=== PATIENT | male | born 1955 | race Caucasian/White ===

== ENCOUNTER 2018-04-15 16:04 | Emergency (ER) | payer MEDICARE, MEDICAID, SELFPAY ==
[2018-04-15 16:12] VITALS: BP 148/77; PULSE 68; RESP 18; TEMP 36.7; O2SAT 95
--- NOTE | 2018-04-15 16:17 | W.ED.GENAD ---
Discharge Plan Disposition Patient Disposition: HOME Condition: Fair Discharge Details Chief Complaint: Orthopedic Clinical Impression: Contusion of knee, left Primary Care Provider: Andrey Wheeler ED Provider: Sophia Valencia Home Meds and New Rx's Prescriptions: Continued acetaminophen 500 MG tablet 500 - 1,000 mg PO Q6H PRNRF: 0 diphenhydramine HCl [Benadryl] 25 MG capsule 25 - 50 mg PO Q6H PRNRF: 0 citalopram 10 MG tablet 10 mg PO HS RF: 0 fluocinonide 60 ML solution 1 applic Topical BID PRNRF: 0 loperamide 2 MG capsule 2 - 4 mg PO DIRECTED PRNRF: 0 metoprolol tartrate 25 MG tablet 25 mg PO BID RF: 0 magnesium hydroxide [Milk of Magnesia] 30 ML suspension 5 - 15 ml PO QID PRNRF: 0 multivitamin 1 EACH capsule 1 tab PO DAILY RF: 0 esomeprazole magnesium [Nexium] 40 MG capsule,delayed release(DR/EC) 40 mg PO HS RF: 0 risperidone 3 MG tablet 3 mg PO BID RF: 0 simethicone 125 MG capsule 125 mg PO HS PRNRF: 0 simvastatin 40 MG tablet 40 mg PO HS RF: 0 trazodone 100 MG tablet 100 mg PO HS RF: 0 triamcinolone acetonide 15 GM cream 1 applic Topical BID PRNRF: 0 cane 1 EACH device 1 ea Miscellaneous DIRECTED Qty: 1 RF: 0 Discharge Instructions Instructions: Contusion in Adults (ED) Additional Instructions: Encourage rest, ice, elevation. Tylenol as needed for discomfort. You may take 1000 mg of Tylenol every 8 hours as needed for discomfort. King wrap is needed to help with discomfort and support the knee. You may continue with cane if this helps with discomfort with walking. If you develop increased pain or other new/worsening symptoms please seek care urgently once again. Otherwise, please follow-up with primary care in the next 1-2 weeks pain persists Referrals: Andrey Wheeler [Primary Care Provider] - Medical Decision Making Patient is a 62 year old male, accompanied by human services case manager, with c/c of left knee pain. 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 Was here previously for injry to the right knee. Reports that 3 hours prior to arrival, he slipped on the ice and fell landing on the left knee. Denies other injury at the time of the incident. Denies striking his head, no LOC. Denies pain elsewhere. histology manager reports that patient has been ambulating with antalgic gait. has been using cane to help with ambulation, this was prescribed for him in May. when he was seen here previously for right knee injury. On exam, patient has minimal discomfort with palpation over the medial joint line. No disocmfort or laxity with varus or valgus stress testing, no abnormality with anterior/posterior drawer testing. No effusion. No ecchymosis or soft tissue sweling. He reports that he was having discomfort to the medial and lateral joint. Unclear as to how he fell, he reports that he struck both sides of his knee. Full ROM. Will augment his Tylenol with Ibuprofen. will obtain XR to evaluate for any bony abnormality. X-ray reviewed by radiologist. They note no evidence of an acute fracture or malalignment or dislocation. They do note a mild suprapatellar joint effusion Discussed these findings with the patient and his human services case manager. I encouraged rest, ice, elevation. May continue with Tylenol as needed for discomfort. Will have nursing staff placed King wrap over the knee to help with discomfort and help with swelling. We discussed new/worsening symptoms when to seek care urgently once again. Advise follow-up with primary care in the next 1-2 weeks if pain persists. All the questions and concerns were addressed in agreement this plan. HPI General Mode of arrival: ambulatory (with cane). Date/Time Provider Initiated Documentation: 04/15/18 16:16. Limitations to Documentation: no limitations. Information obtained by: patient and family (accompanied by human services case manager). History of Present Illness 62 year old M presents to the emergency department with the chief complaint of left knee pain, described as moderate, with intensity rated at 8. Quality is described as aching, and is localized to the left and lower extremity. Patient reports no radiation. Patient started experiencing this hour(s) (3) and it has been constant. Immobilization improves symptom(s), Movement worsens symptoms . Patient notes no other symptoms.. Patient did receive the following treatments prior to arrival, other (Tylenol) Related Data Home Medications Medication Instructions Recorded Confirmed acetaminophen 500 - 1,000 mg PO Q6H PRN 06/25/17 06/25/17 cane #1 ea 06/25/17 citalopram 10 mg PO HS 06/25/17 06/25/17 diphenhydramine HCl [Benadryl] 25 - 50 mg PO Q6H PRN 06/25/17 06/25/17 esomeprazole magnesium [Nexium] 40 mg PO HS 06/25/17 06/25/17 fluocinonide 1 applic TOPICAL BID PRN 06/25/17 06/25/17 loperamide 2 - 4 mg PO DIRECTED PRN 06/25/17 06/25/17 magnesium hydroxide [Milk of 5 - 15 ml PO QID PRN 06/25/17 06/25/17 Magnesia] metoprolol tartrate 25 mg PO BID 06/25/17 06/25/17 multivitamin 1 tab PO DAILY 06/25/17 06/25/17 risperidone 3 mg PO BID 06/25/17 06/25/17 simethicone 125 mg PO HS PRN 06/25/17 06/25/17 simvastatin 40 mg PO HS 06/25/17 06/25/17 trazodone 100 mg PO HS 06/25/17 06/25/17 triamcinolone acetonide 1 applic TOPICAL BID PRN 06/25/17 06/25/17 Previous Rx's Medication Instructions Recorded cane #1 ea 06/25/17 Allergies Allergy/AdvReac Type Severity Reaction Status Date / Time naproxen AdvReac Mild GI bleed Unverified 04/15/18 16:16 General Stated Complaint: Orthopedic MARIA L: 4 Review of Systems Constitutional Reports as per HPI, Denies chills, Denies fever(s), Denies headache(s) and Denies weakness ENT Denies headache(s) Cardiovascular Reports as per HPI Respiratory Reports as per HPI and Denies cough Musculoskeletal Reports as per HPI, Reports abnormal gait (using cane to help with gait), Denies deformity, Denies joint swelling, Denies limited range of motion and Denies tingling Integumentary/Breasts Reports as per HPI, Denies rash and Denies wounds Neurologic Reports abnormal gait (using cane to help with gait), Denies headache(s), Denies tingling and Denies weakness [facility] Social History Smoking/Tobacco Use Status: Never Exam Const General: cooperative, healthy appearing, comfortable, no acute distress, well developed and well groomed Nutritional Appearance: well nourished and overweight Orientation: alert and awake Resp Effort & Inspection: normal respiratory effort, able to speak in complete sentences and no respiratory distress Cardio Rate: regular rate Rhythm: regular rhythm Skin General skin exam: no rashes or lesions noted Lesions: no lesions Rashes: no rashes Trauma: no lacerations or abrasions Neuro General: alert and awake Cognition: normal cognition Speech: speech normal Gait: normal gait Motor: muscle tone normal throughout Sensory Exam: no sensory deficits noted Extrem General: no joint enlargement, no clubbing, cyanosis or edema, no pedal edema, no calf tenderness and abnormal gait (ambulating with antalgic gait, using cane) Left lower extremity: full ROM, normal capillary refill, no joint enlargement and knee Details: tenderness (minimal discomfort over medial joint line) Location: of the medial joint line; not of the patella, not of the tibial tuberosity, not of the lateral joint line, not of the proximal fibula, not of the pre-patellar area, not of the distal upper leg and not of the proximal tibia, knee ligament exam normal Details: anterior drawer test normal, posterior drawer test normal, valgus stress test normal and varus stress test normal and Shmuel's Test Details: negative medially and laterally; no ecchymosis, no deformity and no unusual warmth; no edema Psych Appearance: grossly normal and well kempt Mental Status: mental status grossly normal Speech and Movement: speech and movement normal Course Vital Signs Temperature 36.7 C 04/15/18 16:12 Pulse 68 04/15/18 16:12 Respiratory Rate 18 04/15/18 16:12 Blood Pressure 148/77 H 04/15/18 16:12 Pulse Oximetry 95 04/15/18 16:12 Temperature 36.7 C 04/15/18 16:12 Temperature Source Skin 04/15/18 16:12 Pulse 68 04/15/18 16:12 Respiratory Rate 18 04/15/18 16:12 Blood Pressure 148/77 H 04/15/18 16:12 Blood Pressure Position Sitting 04/15/18 16:12 Pulse Oximetry 95 04/15/18 16:12 Oxygen Delivery Method Room Air 04/15/18 16:12 Oxygen Flow Rate 0 12/17/18 16:12 Pain Level 8 04/15/18 16:12 Comment 04/15/18 16:12
--- NOTE | 2018-04-15 16:26 | DI.RAD_ITS ---
SYMPTOM/DIAGNOSIS: FALL, MEDIAL PAIN LEFT KNEE: There is no evidence of an acute fracture or dislocation. There is mild tri-compartmental joint space narrowing and minimal periarticular hypertrophic spurring is demonstrated involving the patella. There may be a small suprapatellar joint effusion. The soft tissues are unremarkable. SUMMARY: No acute abnormality is demonstrated. There are degenerative changes as noted above with note made of possible joint effusion.
--- NOTE | 2018-04-15 16:32 | ED.GENADUL_ITS ---
Discharge Plan Disposition Patient Disposition: HOME Condition: Fair Discharge Details Chief Complaint: Orthopedic Clinical Impression: Contusion of knee, left Primary Care Provider: Andrey Wheeler ED Provider: Sophia Valencia Home Meds and New Rx's Prescriptions: Continued acetaminophen 500 MG tablet 500 - 1,000 mg PO Q6H PRNRF: 0 diphenhydramine HCl [Benadryl] 25 MG capsule 25 - 50 mg PO Q6H PRNRF: 0 citalopram 10 MG tablet 10 mg PO HS RF: 0 fluocinonide 60 ML solution 1 applic Topical BID PRNRF: 0 loperamide 2 MG capsule 2 - 4 mg PO DIRECTED PRNRF: 0 metoprolol tartrate 25 MG tablet 25 mg PO BID RF: 0 magnesium hydroxide [Milk of Magnesia] 30 ML suspension 5 - 15 ml PO QID PRNRF: 0 multivitamin 1 EACH capsule 1 tab PO DAILY RF: 0 esomeprazole magnesium [Nexium] 40 MG capsule,delayed release(DR/EC) 40 mg PO HS RF: 0 risperidone 3 MG tablet 3 mg PO BID RF: 0 simethicone 125 MG capsule 125 mg PO HS PRNRF: 0 simvastatin 40 MG tablet 40 mg PO HS RF: 0 trazodone 100 MG tablet 100 mg PO HS RF: 0 triamcinolone acetonide 15 GM cream 1 applic Topical BID PRNRF: 0 cane 1 EACH device 1 ea Miscellaneous DIRECTED Qty: 1 RF: 0 Discharge Instructions Instructions: Contusion in Adults (ED) Additional Instructions: Encourage rest, ice, elevation. Tylenol as needed for discomfort. You may take 1000 mg of Tylenol every 8 hours as needed for discomfort. King wrap is needed to help with discomfort and support the knee. You may continue with cane if this helps with discomfort with walking. If you develop increased pain or other new/worsening symptoms please seek care urgently once again. Otherwise, please follow-up with primary care in the next 1-2 weeks pain persists Referrals: Andrey Wheeler [Primary Care Provider] - Medical Decision Making Patient is a 62 year old male, accompanied by caser up, with c/c of left knee pain. 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 Was here previously for injry to the right knee. Reports that 3 hours prior to arrival, he slipped on the ice and fell landing on the left knee. Denies other injury at the time of the incident. Denies striking his head, no LOC. Denies pain elsewhere. patient accounts manager reports that patient has been ambulating with antalgic gait. has been using cane to help with ambulation, this was prescribed for him in May. when he was seen here previously for right knee injury. On exam, patient has minimal discomfort with palpation over the medial joint line. No disocmfort or laxity with varus or valgus stress testing, no abnormality with anterior/posterior drawer testing. No effusion. No ecchymosis or soft tissue sweling. He reports that he was having discomfort to the medial and lateral joint. Unclear as to how he fell, he reports that he struck both sides of his knee. Full ROM. Will augment his Tylenol with Ibuprofen. will obtain XR to evaluate for any bony abnormality. X-ray reviewed by radiologist. They note no evidence of an acute fracture or malalignment or dislocation. They do note a mild suprapatellar joint effusion Discussed these findings with the patient and his caser up. I encouraged rest, ice, elevation. May continue with Tylenol as needed for discomfort. Will have nursing staff placed King wrap over the knee to help with discomfort and help with swelling. We discussed new/worsening symptoms when to seek care urgently once again. Advise follow-up with primary care in the next 1-2 weeks if pain persists. All the questions and concerns were addressed in agreement this plan. HPI General Mode of arrival: ambulatory (with cane) . Date/Time Provider Initiated Documentation: 04/15/18 16:16 . Limitations to Documentation: no limitations . Information obtained by: patient and family (accompanied by caser up) . History of Present Illness 62 year old M presents to the emergency department with the chief complaint of left knee pain, described as moderate, with intensity rated at 8. Quality is described as aching, and is localized to the left and lower extremity. Patient reports no radiation. Patient started experiencing this hour(s) (3) and it has been constant. Immobilization improves symptom(s), Movement worsens symptoms . Patient notes no other symptoms.. Patient did receive the following treatments prior to arrival, other (Tylenol) Related Data Home Medications Medication Instructions Recorded Confirmed acetaminophen 500 - 1,000 mg PO Q6H PRN 06/25/17 06/25/17 cane #1 ea 06/25/17 citalopram 10 mg PO HS 06/25/17 06/25/17 diphenhydramine HCl [Benadryl] 25 - 50 mg PO Q6H PRN 06/25/17 06/25/17 esomeprazole magnesium [Nexium] 40 mg PO HS 06/25/17 06/25/17 fluocinonide 1 applic TOPICAL BID PRN 06/25/17 06/25/17 loperamide 2 - 4 mg PO DIRECTED PRN 06/25/17 06/25/17 magnesium hydroxide [Milk of 5 - 15 ml PO QID PRN 06/25/17 06/25/17 Magnesia] metoprolol tartrate 25 mg PO BID 06/25/17 06/25/17 multivitamin 1 tab PO DAILY 06/25/17 06/25/17 risperidone 3 mg PO BID 06/25/17 06/25/17 simethicone 125 mg PO HS PRN 06/25/17 06/25/17 simvastatin 40 mg PO HS 06/25/17 06/25/17 trazodone 100 mg PO HS 06/25/17 06/25/17 triamcinolone acetonide 1 applic TOPICAL BID PRN 06/25/17 06/25/17 Previous Rx's Medication Instructions Recorded cane #1 ea 06/25/17 Allergies Allergy/AdvReac Type Severity Reaction Status Date / Time naproxen AdvReac Mild GI bleed Unverified 04/15/18 16:16 General Stated Complaint: Orthopedic MARIA L: 4 Review of Systems Constitutional Reports as per HPI, Denies chills, Denies fever(s), Denies headache(s) and Denies weakness ENT Denies headache(s) Cardiovascular Reports as per HPI Respiratory Reports as per HPI and Denies cough Musculoskeletal Reports as per HPI, Reports abnormal gait (using cane to help with gait), Denies deformity, Denies joint swelling, Denies limited range of motion and Denies tingling Integumentary/Breasts Reports as per HPI, Denies rash and Denies wounds Neurologic Reports abnormal gait (using cane to help with gait), Denies headache(s), Denies tingling and Denies weakness [facility] Social History Smoking/Tobacco Use Status: Never Exam Const General: cooperative, healthy appearing, comfortable, no acute distress, well developed and well groomed Nutritional Appearance: well nourished and overweight Orientation: alert and awake Resp Effort & Inspection: normal respiratory effort, able to speak in complete sentences and no respiratory distress Cardio Rate: regular rate Rhythm: regular rhythm Skin General skin exam: no rashes or lesions noted Lesions: no lesions Rashes: no rashes Trauma: no lacerations or abrasions Neuro General: alert and awake Cognition: normal cognition Speech: speech normal Gait: normal gait Motor: muscle tone normal throughout Sensory Exam: no sensory deficits noted Extrem General: no joint enlargement, no clubbing, cyanosis or edema, no pedal edema, no calf tenderness and abnormal gait (ambulating with antalgic gait, using cane) Left lower extremity: full ROM, normal capillary refill, no joint enlargement and knee Details: tenderness (minimal discomfort over medial joint line) Location: of the medial joint line; not of the patella, not of the tibial tuberosity, not of the lateral joint line, not of the proximal fibula, not of the pre-patellar area, not of the distal upper leg and not of the proximal tibia, knee ligament exam normal Details: anterior drawer test normal, posterior drawer test normal, valgus stress test normal and varus stress test normal and Shmuel's Test Details: negative medially and laterally; no ecchymosis, no deformity and no unusual warmth; no edema Psych Appearance: grossly normal and well kempt Mental Status: mental status grossly normal Speech and Movement: speech and movement normal Course Vital Signs Temperature 36.7 C 04/15/18 16:12 Pulse 68 04/15/18 16:12 Respiratory Rate 18 04/15/18 16:12 Blood Pressure 148/77 H 04/15/18 16:12 Pulse Oximetry 95 04/15/18 16:12 Temperature 36.7 C 04/15/18 16:12 Temperature Source Skin 04/15/18 16:12 Pulse 68 04/15/18 16:12 Respiratory Rate 18 04/15/18 16:12 Blood Pressure 148/77 H 04/15/18 16:12 Blood Pressure Position Sitting 04/15/18 16:12 Pulse Oximetry 95 04/15/18 16:12 Oxygen Delivery Method Room Air 04/15/18 16:12 Oxygen Flow Rate 0 12/17/18 16:12 Pain Level 8 04/15/18 16:12 Comment 04/15/18 16:12
[2018-04-15] MEDS: Ibuprofen 600 MG TAB PO (16:35)
--- NOTE | 2018-04-15 18:08 | DI.VRAD_ITS ---
EXAM: XR Left Knee, 4 or more Views EXAM DATE/TIME: 04/15/2018 4:27 PM CLINICAL HISTORY: 62 years old, male; Injury or trauma; Fall; Initial encounter; Swelling (edema); Knee; Left TECHNIQUE: XR Left knee 4 or more views. COMPARISON: No relevant prior studies available. FINDINGS: Bones/joints: There is no evidence of acute fracture.. There is no evidence of malalignment or dislocation. Tricompartmental joint space narrowing consistent with degenerative changes. Minimal osteophyte formation in the superior pole of patella. Mild suprapatellar joint effusion. Soft tissues: Normal. IMPRESSION: 1. There is no evidence of acute fracture.. 2. There is no evidence of malalignment or dislocation. 3. Mild suprapatellar joint effusion. Dictated and Authenticated by: Michelle Sykes MD. Ordering:JULITO Cortes MD
[2018-04-15 18:40] VITALS: BP 160/85; PULSE 68; RESP 18; TEMP 36.7; O2SAT 95
== END 2018-04-15 18:51 | disposition home or self-care (01) ==
PROVIDERS: Emergency Provider Physician Assistant; PCP Internal Medicine
DX: S80.02XA Contusion of left knee, initial encounter (principal); W00.0XXA Fall on same level due to ice and snow, initial encounter
CPT/HCPCS: 99282; 99283; 73564

== ENCOUNTER 2018-08-14 13:44 | Outpatient (REF) | payer MEDICARE, MEDICAID, SELFPAY ==
[2018-08-14 19:52] LABS: Abs Immature Grans 0.01 k/cumm (0.0-0.09); Absolute Basophil Count 0.02 k/cumm (0.0-0.2); Absolute Lymphocyte Count 2.84 k/cumm (1.2-3.4); Absolute Monocyte Count 0.64 k/cumm (0.11-0.7); Absolute Neutrophil Count 4.25 k/cumm (1.2-6.7); Basophils % 0.3; Eosinophils % 1.3; HCT 38.4 % (40.0-50.0); Immature Grans % 0.1; Lymphocytes % 36.1; Mean Corp. HGB Concentration 33.9 g/dL (32.0-36.0); Mean Corpuscular Hemoglobin 30.7 pg (27.0-33.0); Mean Corpuscular Volume 90.8 fL (80-95); Mean Platelet Volume 9.8 fL (8.0-11.0); Monocytes % 8.1; Neutrophils % 54.1; Platelet Count 297 x1000/uL (130-400); RBC 4.23 m/cumm (4.50-6.00); RBC Distribution Width 13.6 % (11.8-14.1); White Blood Cell Count 7.86 k/cumm (4.4-10.8)
[2018-08-14 20:03] LABS: ALT 25 U/L (12-78); AST 15 U/L (15-37); Albumin 3.7 g/dL (3.4-5.0); Alkaline Phosphatase 65 U/L (46-116); Anion Gap 10.5 mmol/L (3-11); BUN 13 mg/dL (7-18); Bilirubin, Total 0.3 mg/dL (0.2-1.0); CO2 26.5 mmol/L (21.0-32.0); CREATININE 0.82 mg/dL (0.70-1.30); Calcium 8.7 mg/dL (8.5-10.1); Chloride 103 mmol/L (98-107); Glucose 104 mg/dL (70-100); LDL CHOLESTEROL 102 mg/dL (<100); Sodium 140 mmol/L (136-145); Total Protein 7.3 g/dL (6.4-8.2)
== END 2018-08-14 14:04 ==
LOC: NCHCN 13:44
PROVIDERS: PCP Internal Medicine; Visit Provider Internal Medicine
DX: E78.5 Hyperlipidemia, unspecified (principal); D64.9 Anemia, unspecified
CPT/HCPCS: 80053; 83721; 85025

== ENCOUNTER 2018-10-28 12:10 | Emergency (ER) | payer MEDICARE, MEDICAID, SELFPAY ==
[2018-10-28 12:15] VITALS: BP 114/70; PULSE 70; RESP 18; TEMP 36.6; O2SAT 94
--- NOTE | 2018-10-28 12:58 | DI.RAD_ITS ---
SYMPTOMS/DIAGNOSIS: LEG PAIN, HIP PAIN PELVIS AND LEFT HIP: No fracture or dislocation is seen. The hip joint spaces are well maintained. The SI joints and pubic symphysis are not widened. IMPRESSION: Negative pelvis and left hip. LEFT FEMUR: No fracture is identified. The hip and knee are unremarkable as visualized. IMPRESSION: Negative left femur.
[2018-10-28] MEDS: Acetaminophen 325 MG TAB 650 MG PO (13:00)
--- NOTE | 2018-10-28 14:29 | ED.GENADUL_ITS ---
Discharge Plan Disposition Patient Disposition: HOME Discharge Details Chief Complaint: Orthopedic Primary Care Provider: Andrey Wheeler ED Provider: Kvng Herbert Home Meds and New Rx's Prescriptions: Continued diphenhydramine HCl [Benadryl] 25 MG capsule 25 - 50 mg PO Q6H PRNRF: 0 citalopram 10 MG tablet 10 mg PO HS RF: 0 fluocinonide 60 ML solution 1 applic Topical BID PRNRF: 0 loperamide 2 MG capsule 2 - 4 mg PO DIRECTED PRNRF: 0 metoprolol tartrate 25 MG tablet 25 mg PO BID RF: 0 magnesium hydroxide [Milk of Magnesia] 30 ML suspension 5 - 15 ml PO QID PRNRF: 0 multivitamin 1 EACH capsule 1 tab PO DAILY RF: 0 esomeprazole magnesium [Nexium] 40 MG capsule,delayed release(DR/EC) 40 mg PO HS RF: 0 risperidone 3 MG tablet 3 mg PO BID RF: 0 simethicone 125 MG capsule 125 mg PO HS PRNRF: 0 simvastatin 40 MG tablet 40 mg PO HS RF: 0 trazodone 100 MG tablet 100 mg PO HS RF: 0 triamcinolone acetonide 15 GM cream 1 applic Topical BID PRNRF: 0 cane 1 EACH device 1 ea Miscellaneous DIRECTED Qty: 1 RF: 0 acetaminophen 500 MG tablet 500 - 1,000 mg PO Q6H PRNQty: 20 RF: 0 Discharge Data Discharge Date/Time-TO BE ENTERED AT DEPARTURE: 10/28/18 14:45 Medical Decision Making Patient presenting to the emergency department for chief complaint of left hip and groin pain. Patient states that over the past couple days he has been going up and down stairs a lot and carrying boxes and heavy items. Patient states that he woke up this morning with this pain and discomfort. He has had this 2 other times in the past which was attributed to old age and/or arthritis. Patie nt denies any fever chills, blunt trauma, any abdominal pain. Physical exam shows tenderness to the proximal upper femur, to the hip, pain with both internal and external rotation of the hip, and some mid thigh discomfort. Otherwise abdominal exam is unremarkable, patient has no signs of hernia or testicular pain discomfort or abnormality. Plan to do radiological imaging of the hip and femur. Pending results patient given acetaminophen After review of radiological imaging and radiologist dictation that shows no acute findings patient was reassessed. Patient states significant improvement in discomfort. Patient was encouraged to continue to use acetaminophen as needed for discomfort and follow-up with his primary care provider for reassessment. Patient was informed he should rest the extremity over the next couple days and slowly advance activity as tolerated. HPI General Mode of arrival: ambulatory . Date/Time Provider Initiated Documentation: 10/28/18 12:20 . Limitations to Documentation: no limitations . Information obtained by: patient and RN notes reviewed . History of Present Illness 63 year old M presents to the emergency department with the chief complaint of left hip and groin pain, described as moderate, with intensity rated at 7. Quality is described as aching and sharp, and is localized to the left and lower extremity. Patient distal. Patient started experiencing this day(s) (1) and it has been constant. Rest improves symptom(s), Movement worsens symptoms . Patient notes no other symptoms.. Patient did receive the following treatments prior to arrival, none Related Data Home Medications Medication Instructions Recorded Confirmed cane #1 ea 06/25/17 citalopram 10 mg PO HS 06/25/17 06/25/17 diphenhydramine HCl [Benadryl] 25 - 50 mg PO Q6H PRN 06/25/17 06/25/17 esomeprazole magnesium [Nexium] 40 mg PO HS 06/25/17 06/25/17 fluocinonide 1 applic TOPICAL BID PRN 06/25/17 06/25/17 loperamide 2 - 4 mg PO DIRECTED PRN 06/25/17 06/25/17 magnesium hydroxide [Milk of 5 - 15 ml PO QID PRN 06/25/17 06/25/17 Magnesia] metoprolol tartrate 25 mg PO BID 06/25/17 06/25/17 multivitamin 1 tab PO DAILY 06/25/17 06/25/17 risperidone 3 mg PO BID 06/25/17 06/25/17 simethicone 125 mg PO HS PRN 06/25/17 06/25/17 simvastatin 40 mg PO HS 06/25/17 06/25/17 trazodone 100 mg PO HS 06/25/17 06/25/17 triamcinolone acetonide 1 applic TOPICAL BID PRN 06/25/17 06/25/17 acetaminophen 500 - 1,000 mg PO Q6H PRN #20 tab 10/28/18 Previous Rx's Medication Instructions Recorded cane #1 ea 06/25/17 acetaminophen 500 - 1,000 mg PO Q6H PRN #20 tab 10/28/18 Allergies Allergy/AdvReac Type Severity Reaction Status Date / Time naproxen AdvReac Mild GI bleed Unverified 10/28/18 12:18 General Stated Complaint: Orthopedic MARIA L: 3 Review of Systems Constitutional Denies chills and Denies fever(s) Gastrointestinal Denies abdominal pain and Denies nausea Genitourinary Denies genital pain and Denies testicular pain Musculoskeletal Reports as per HPI, Reports myalgias, Denies deformity, Reports arthralgias, Denies joint swelling and Denies limited range of motion PFSH Social History Smoking/Tobacco Use Status: Never Alcohol Intake: never Drug use: Never Substance use type: does not use Do you feel safe at home: Yes Do you feel safe in your relationship?: Yes Exam Const General: cooperative and no acute distress Orientation: alert, awake and oriented x3 Resp Effort & Inspection: normal respiratory effort and able to speak in complete sentences Cardio Rate: regular rate Rhythm: regular rhythm Extrem Left lower extremity: hip/thigh Details: tenderness Location: of the hip Location: laterally and of the proximal upper leg Location: anteriorly and anterolaterally and abnormal ROM Details: pain with resistance Details: to internal rotation and to external rotation; no swelling, no ecchymosis and no crepitus and knee Details: normal to inspection and normal ROM; no tenderness and no swelling Course Vital Signs Temperature 36.6 C 10/28/18 12:15 Pulse 70 10/28/18 12:15 Respiratory Rate 18 10/28/18 12:15 Blood Pressure 114/70 10/28/18 12:15 Pulse Oximetry 94 L 10/28/18 12:15 Temperature 36.6 C 10/28/18 12:15 Temperature Source Temporal Artery Scan 10/28/18 12:15 Pulse 70 10/28/18 12:15 Respiratory Rate 18 10/28/18 12:15 Respiratory Effort Non-Labored 10/28/18 12:17 Blood Pressure 114/70 10/28/18 12:15 Blood Pressure Position Sitting 10/28/18 12:15 Pulse Oximetry 94 L 10/28/18 12:15 Pain Level 8 10/28/18 13:00
[2018-10-28 14:43] VITALS: BP 155/73; PULSE 72; RESP 15; TEMP 36.5; O2SAT 95
== END 2018-10-28 14:45 | disposition home or self-care (01) ==
PROVIDERS: Emergency Provider Nurse Practitioner Family; PCP Internal Medicine
DX: M25.552 Pain in left hip (principal); X50.0XXA Overexertion from strenuous movement or load, initial encounter
CPT/HCPCS: 73552; 99284; 73502

== ENCOUNTER 2019-02-02 16:19 | Emergency (ER) | payer MEDICARE, MEDICAID, SELFPAY ==
[2019-02-02 16:24] VITALS: BP 172/72; PULSE 76; RESP 16; TEMP 36.5; O2SAT 96
--- NOTE | 2019-02-02 16:37 | W.ED.GENAD ---
Discharge Plan Disposition Patient Disposition: HOME Condition: Stable Discharge Details Chief Complaint: RashLesion Clinical Impression: Tick bite Primary Care Provider: Andrey Wheeler ED Provider: Kvng Herbert Home Meds and New Rx's Prescriptions: New doxycycline hyclate 100 mg capsule 100 mg PO BID 14 Days Qty: 28 RF: 0 Continued diphenhydramine HCl [Benadryl] 25 MG capsule 25 - 50 mg PO Q6H PRNRF: 0 citalopram 10 MG tablet 10 mg PO HS RF: 0 fluocinonide 60 ML solution 1 applic Topical BID PRNRF: 0 loperamide 2 MG capsule 2 - 4 mg PO DIRECTED PRNRF: 0 metoprolol tartrate 25 MG tablet 25 mg PO BID RF: 0 multivitamin 1 EACH capsule 1 tab PO DAILY RF: 0 esomeprazole magnesium [Nexium] 40 MG capsule,delayed release(DR/EC) 40 mg PO HS RF: 0 risperidone 3 MG tablet 3 mg PO BID RF: 0 simethicone 125 MG capsule 125 mg PO HS PRNRF: 0 simvastatin 40 MG tablet 40 mg PO HS RF: 0 trazodone 100 MG tablet 100 mg PO HS RF: 0 triamcinolone acetonide 15 GM cream 1 applic Topical BID PRNRF: 0 (DME) cane 1 EACH device 1 ea Miscellaneous DIRECTED Qty: 1 RF: 0 acetaminophen 500 MG tablet 500 - 1,000 mg PO Q6H PRNQty: 20 RF: 0 ropinirole 1 mg Tablet 1 mg PO .QHS RF: 0 terbinafine HCl 250 mg Tablet 250 mg PO DAILY RF: 0 magnesium hydroxide [Milk of Magnesia] 30 ML suspension 5 - 15 ml PO QID PRN (Reason: stomach upset) Qty: 0 RF: 0 Discharge Instructions Instructions: Tick Bite (ED) Additional Instructions: Please take medication as prescribed and for the full 2 weeks. Please do not take your Maalox/milk of magnesium with the doxycycline as this will diminish its effectiveness. If not improving over the next week please follow-up with your primary care provider for reassessment and feel free to return to the emergency department for any new or significant worsening of symptoms. You may take acetaminophen as needed for pain and discomfort, just take as directed on [id number] packaging. Referrals: Andrey Wheeler [Primary Care Provider] - Discharge Data Discharge Date/Time-TO BE ENTERED AT DEPARTURE: 02/02/19 16:50 Medical Decision Making Patient presenting to the emergency department chief complaint of tick bite. Patient states that this occurred 2 weeks ago. Patient reports today he started having some arthralgia. He does state that the initial tick bite has not seemed healed and is continued with redness. Patient denies any other symptoms including fever or chills. Physical exam is unremarkable except for erythema to right antecubital space. Localized area of redness is not consistent with erythema migrans or definitive tickborne illness type rash. No tick is present at this time and patient has full range of motion of the right upper extremity with no other abnormalities noted. Given patient's associated tick bite and now developing localized arthralgia in the same area which the embedded tick was removed and that it is been 2 weeks I do feel it is prudent for treatment of tickborne illness. Patient placed on doxycycline. Return precautions were discussed along with follow-up with primary care provider. After discussion of diagnosis and plan of care patient has no further needs, questions, or concerns and states clear understanding to return to the emergency department for any worsening symptoms. HPI General Mode of arrival: ambulatory. Date/Time Provider Initiated Documentation: 02/02/19 16:20. Limitations to Documentation: no limitations. Information obtained by: patient and RN notes reviewed. History of Present Illness 63 year old M presents to the emergency department with the chief complaint of Tick bite-right elbow pain, described as mild, with intensity rated at 4. Quality is described as aching, and is localized to the right and upper extremity. Patient started experiencing this week(s) (2) and it has been constant. No relieving factors improve symptom(s), Patient notes no other symptoms.. Patient did receive the following treatments prior to arrival, none Related Data Home Medications Medication Instructions Recorded Confirmed cane #1 ea 06/25/17 citalopram 10 mg PO HS 06/25/17 02/02/19 diphenhydramine HCl [Benadryl] 25 - 50 mg PO Q6H PRN 06/25/17 02/02/19 esomeprazole magnesium [Nexium] 40 mg PO HS 06/25/17 06/25/17 fluocinonide 1 applic TOPICAL BID PRN 06/25/17 02/02/19 loperamide 2 - 4 mg PO DIRECTED PRN 06/25/17 02/02/19 metoprolol tartrate 25 mg PO BID 06/25/17 02/02/19 multivitamin 1 tab PO DAILY 06/25/17 02/02/19 risperidone 3 mg PO BID 06/25/17 02/02/19 simethicone 125 mg PO HS PRN 06/25/17 02/02/19 simvastatin 40 mg PO HS 06/25/17 02/02/19 trazodone 100 mg PO HS 06/25/17 02/02/19 triamcinolone acetonide 1 applic TOPICAL BID PRN 06/25/17 02/02/19 acetaminophen 500 - 1,000 mg PO Q6H PRN #20 tab 10/28/18 02/02/19 doxycycline hyclate 100 mg PO BID 14 Days #28 cap 02/02/19 magnesium hydroxide [Milk of 5 - 15 ml PO QID PRN #0 ml 02/02/19 02/02/19 Magnesia] ropinirole 1 mg PO .QHS 02/02/19 02/02/19 terbinafine HCl 250 mg PO DAILY 02/02/19 02/02/19 Previous Rx's Medication Instructions Recorded cane #1 ea 06/25/17 acetaminophen 500 - 1,000 mg PO Q6H PRN #20 tab 10/28/18 doxycycline hyclate 100 mg PO BID 14 Days #28 cap 02/02/19 magnesium hydroxide [Milk of 5 - 15 ml PO QID PRN #0 ml 02/02/19 Magnesia] Allergies Allergy/AdvReac Type Severity Reaction Status Date / Time naproxen AdvReac Mild GI bleed Unverified 02/02/19 16:28 General Stated Complaint: RashLesion MARIA L: 4 Review of Systems Constitutional Constitutional: Denies body ache(s), Denies fever(s) and Denies headache(s) ENT Ears, Nose, Mouth, and Throat: Denies headache(s) Musculoskeletal Musculoskeletal: Denies myalgias, Reports arthralgias and Denies joint swelling Integumentary/Breasts Skin/Breast: Reports as per HPI, Reports erythema and Denies rash Neurologic Neurologic: Denies headache(s) and Denies paresthesias [facility] Social History Smoking/Tobacco Use Status: Never Alcohol Intake: never Drug use: Never Substance use type: does not use Do you feel safe at home: Yes Do you feel safe in your relationship?: Yes Exam Const General: cooperative, comfortable and no acute distress Orientation: alert, awake and oriented x3 Resp Effort & Inspection: normal respiratory effort and able to speak in complete sentences Skin General skin exam: erythema (Circular area to right antecubital space), no fluctuance and no induration Rashes: no rashes Neuro General: alert, awake and oriented x3 Course Vital Signs Vital signs: Vital Signs Temperature 36.5 C 02/02/19 16:24 Pulse 76 02/02/19 16:24 Respiratory Rate 16 02/02/19 16:24 Blood Pressure 172/72 H 02/02/19 16:24 Pulse Oximetry 96 02/02/19 16:24 Temperature 36.5 C 02/02/19 16:24 Pulse 76 02/02/19 16:24 Respiratory Rate 16 02/02/19 16:24 Respiratory Effort Non-Labored 02/02/19 16:24 Blood Pressure 172/72 H 02/02/19 16:24 Blood Pressure Position Sitting 02/02/19 16:24 Pulse Oximetry 96 02/02/19 16:24 Oxygen Delivery Method Room Air 02/02/19 16:24 Oxygen Flow Rate 0 02/02/19 16:24 Pain Level 7 02/02/19 16:24
[2019-02-02] MEDS: Doxycycline Hyclate 100 MG CAP PO (16:42)
== END 2019-02-02 16:50 | disposition home or self-care (01) ==
PROVIDERS: Emergency Provider Nurse Practitioner Family; PCP Internal Medicine
DX: S50.861A Insect bite (nonvenomous) of right forearm, initial encounter (principal); W57.XXXA Bitten or stung by nonvenomous insect and other nonvenomous arthropods, initial encounter
CPT/HCPCS: 99283

== ENCOUNTER 2019-05-15 19:37 | Outpatient (REF) | payer MEDICARE, SELFPAY ==
[2019-05-15 18:54] LABS: HCT 35.5 % (40.0-50.0); HGB 12.2 g/dL (13.5-17.5); Mean Corp. HGB Concentration 34.4 g/dL (32.0-36.0); Mean Corpuscular Hemoglobin 31.1 pg (27.0-33.0); Mean Corpuscular Volume 90.6 fL (80-95); Mean Platelet Volume 9.7 fL (8.0-11.0); Platelet Count 271 x1000/uL (130-400); RBC 3.92 m/cumm (4.50-6.00)
[2019-05-15 19:03] LABS: ALT 26 U/L (16-63); AST 11 U/L (15-37); Alkaline Phosphatase 67 U/L (46-116); Anion Gap 13.3 mmol/L (3-11); BUN 15 mg/dL (7-18); Bilirubin, Total 0.4 mg/dL (0.2-1.0); CO2 21.7 mmol/L (21.0-32.0); CREATININE 0.68 mg/dL (0.70-1.30); Calcium 8.6 mg/dL (8.5-10.1); Chloride 104 mmol/L (98-107); Glucose 101 mg/dL (74-106); Sodium 139 mmol/L (136-145); Total Protein 7.2 g/dL (6.4-8.2)
[2019-05-15 19:25] LABS: Prothrombin Time 9.9 sec (9.3-11.0)
[2019-05-16 19:28] LABS: Reticulocyte 2.3 % (0.5-2.4)
== END 2019-05-15 19:57 ==
LOC: NCHCN 19:37
PROVIDERS: PCP Internal Medicine; Visit Provider Internal Medicine
DX: D69.2 Other nonthrombocytopenic purpura (principal); I10 Essential (primary) hypertension; L92.9 Granulomatous disorder of the skin and subcutaneous tissue, unspecified; D64.9 Anemia, unspecified
CPT/HCPCS: 80053; 85027; 85045; 85610

== ENCOUNTER 2019-05-22 01:42 | Outpatient (CLI) | payer MEDICARE, SELFPAY ==
--- NOTE | 2019-05-22 07:35 | DI.US_ITS ---
EXAM: US ABDOMEN CLINICAL HISTORY: ABNL LFT'S, PAST ALCOHOL ABUSE TECHNIQUE: Ultrasound abdomen performed using standard protocol. COMPARISON: No exams were available for comparison FINDINGS: LIVER: Diffuse increased echogenicity consistent with fatty infiltration. No mass is present. There is hepatopetal flow through the portal vein. GALLBLADDER: Gallstones. The gallbladder is contracted. No definite gallbladder wall thickening. N o pericholecystic fluid identified. KIDNEYS: Kidneys are symmetric in size. No evidence of renal calculi. No evidence of hydronephrosis. No renal mass or cyst identified. BILIARY SYSTEM: Common bile duct measures 3.6 mm. No intrahepatic biliary ductal dilation. MUNOZ'S SIGN: Negative. PANCREAS: There is a 0.9 x 1.4 x 2 cm avascular cyst in the tail of the pancreas. SPLEEN: Not enlarged. ABDOMINAL AORTA AND IVC: Visualized portions normal caliber. ASCITES: None seen. IMPRESSION: 1. Hepatic steatosis. 2. 0.9 x 1.4 x 2 cm cyst in the tail of the pancreas. CT scan should be considered for further evalu ation. 3. Cholelithiasis.
== END 2019-05-22 02:02 ==
PROVIDERS: PCP Internal Medicine; Visit Provider Internal Medicine
DX: K76.0 Fatty (change of) liver, not elsewhere classified (principal); K86.2 Cyst of pancreas; K80.20 Calculus of gallbladder without cholecystitis without obstruction; R94.5 Abnormal results of liver function studies; F10.21 Alcohol dependence, in remission
CPT/HCPCS: 76700

== ENCOUNTER 2019-06-06 02:03 | Outpatient (CLI) | payer MEDICARE, SELFPAY ==
--- NOTE | 2019-06-06 14:44 | DI.CT_ITS ---
EXAM: CT ABDOMEN W CLINICAL HISTORY: PANCREATIC CYST, K86.2 SEEN ON HEPATIC US TECHNIQUE: CT examination of the abdomen was performed with intravenous infusion of 100 cc Omnipaque 350. COMPARISON: US ABDOMEN from 05/22/2019 FINDINGS: Images obtained through the lung bases show mild bibasilar scarring. There is low density material i n the gallbladder fossa, this may represent cholelithiasis. Prior surgical history requested. No bi liary dilatation seen. There is a rounded low-attenuation lesion of the pancreatic body measuring about 17 millimeters in di ameter. No associated enhancement of the adjacent pancreatic parenchyma. No peripancreatic fat berry ges. No dilatation of the distal pancreatic duct. No abdominal or retroperitoneal adenopathy. Adrenals and kidneys appear normal. Spleen is unremarkable in appearance. Abdominal aorta and major branch vessels appear normal. IMPRESSION: Indeterminate pancreatic cyst as described above. MR evaluation is more accurate than CT in determin ing the likelihood of malignancy; however, given the unilocular simple cyst appearance on ultrasound and the benign appearance on CT, it would be appropriate to follow this lesion with a repeat CT in 12 months.
[2019-06-06] MEDS: Omnipaque 350 MG/ML 100 ML BTL IV (14:45)
== END 2019-06-06 02:23 ==
PROVIDERS: PCP Internal Medicine; Visit Provider Internal Medicine
DX: K86.2 Cyst of pancreas (principal)
CPT/HCPCS: 74160; J3490

== ENCOUNTER 2020-05-12 16:40 | Outpatient (REF) | payer OTHER, SELFPAY ==
[2020-05-12 20:05] LABS: HGB 11.5 g/dL (13.5-17.5); MCH 30.7 pg (27.0-33.0); MCHC 34.8 % (32.0-36.0); MPV 10.1 fL (8.0-11.0); Platelet Count 268 10^3/uL (130-400); RBC 3.75 10^6/uL (4.36-5.78); RDW 12.6 % (11.8-14.1); RDW-SD 40.4 fL
[2020-05-12 20:17] LABS: ALT 34 U/L (16-63); AST 14 U/L (15-37); Albumin 3.6 g/dL (3.4-5.0); Alkaline Phosphatase 63 U/L (46-116); Anion Gap 10.8 mmol/L (3-11); BUN 13 mg/dL (7-18); Bilirubin, Total 0.3 mg/dL (0.2-1.0); CO2 27.2 mmol/L (21.0-32.0); CREATININE 0.98 mg/dL (0.70-1.30); Calcium 8.8 mg/dL (8.5-10.1); Chloride 100 mmol/L (98-107); Glucose 103 mg/dL (74-106); Potassium 3.5 mmol/L (3.5-5.1); Sodium 138 mmol/L (136-145); Total Protein 6.8 g/dL (6.4-8.2)
== END 2020-05-12 17:00 ==
LOC: NCHCN 16:40
PROVIDERS: PCP Internal Medicine; Visit Provider Internal Medicine
DX: K76.0 Fatty (change of) liver, not elsewhere classified (principal); I10 Essential (primary) hypertension; L40.9 Psoriasis, unspecified; E66.9 Obesity, unspecified
CPT/HCPCS: 80053; 85027

== ENCOUNTER 2020-05-28 02:51 | Outpatient (CLI) | payer OTHER, MEDICAID, SELFPAY ==
--- NOTE | 2020-05-28 08:00 | DI.CT_ITS ---
EXAM: CT ABDOMEN WO/W CLINICAL HISTORY: F/U PANCREATIC CYST, K86.2. TECHNIQUE: Imaging Protocol: Axial computed tomography images with coronal and sagittal reformatted images were created and reviewed CONTRAST MATERIAL: Intravenous: Omnipaque 350 Contrast volume:100 contrast route:IV - Oral: Yes COMPARISON: CT CT ABDOMEN W from 06/06/2019 FINDINGS: ABDOMEN: Visualized lung bases exhibit some atelectasis in the right lung base adjacent to the elevated right hemidiaphragm. Mild infiltrate in the medial aspect of the posterior basal segment of the left lower lobe. No pleural effusions. In the abdomen there is no ascites. Liver/biliary: There are no new discrete focal hepatic lesions evident. The gallbladder lumen is again noted be fill ed with calculi. Gallbladder is not distended and there is no gallbladder wall edema to suggest acute cholecystitis. The CBD is not dilated. Pancreas: Again noted is a previously described solitary abnormality in the pancreas which is a nonen hancing cystic structure in the body which measures 18 x 16 x 14 millimeters, appearing minimally mor e prominent than previous by 1 or 2 millimeters. There is no internal enhancement nor obvious interna l septae a. No other similar nor different appearing lesions are noted in the pancreas and the pancre atic duct is not dilated. There are no pancreatic calcifications. Spleen: Spleen is not enlarged. There are no intrasplenic lesions. Splenic and portal veins are paten t. Adrenals: There are no significant adrenal masses Kidneys: No calculi, cysts nor significant solid lesions. No hydronephrosis. Abdominal aorta: Not enlarged. There is also no para-aortic adenopathy. Lymph nodes: There is no retroperitoneal adenopathy. No portacaval adenopathy. Mesentery: No abnormal masses. No fluid collections. No abnormal streaking. No vascular encasement in the region of the pancreas. Anterior abdominal wall: No significant hernia at and above the umbilicus level. Visualized GI: No bowel obstruction. Appendix is partially included in the field of view and appears unremarkable. Osseous: No lytic or blastic osseous lesions evident. Chronic degenerative disc disease lower LS spin e noted. IMPRESSION: Compared to the prior CT scan of May 2019 there is again noted the previously described solitary cystic lesion in the anterior aspect of the body of the pancreas. This exhibits minimal enlargement, with measurements presently measuring 18 x 16 x 14 millimeters. This again appears cystic with no in ternal nor circumferential enhancement nor dilatation of the pancreatic duct. This is most probably a n intra pancreatic cystic neoplasm. If clinically indicated follow-up MRI can be performed. There is no associated adenopathy nor vascular encasement. There are no pancreatic parenchymal calcif ications. Incidentally noted is cholelithiasis with multiple gallstones filling the gallbladder lumen. No gallb ladder distension nor evidence of cholecystitis nor dilatation of the biliary tree, both intra and ex trahepatic. RADIATION DOSE DELIVERED: 2,550.08mGy.cm Total DLP DATA REPOSITORY: All CT scans at this facility are submitted to the National Radiology Data Registry (NRDR) Dose Index Registry (DIR) with the [employer] ([employer]). RADIATION OPTIMIZATION: All CT scans at this facility use at least one of these dose optimization te chniques: automated exposure control; mA and/or kV adjustment per patient size (includes targeted exa ms where dose is matched to clinical indication); or iterative reconstruction.
[2020-05-28] MEDS: Omnipaque 350 MG/ML 100 ML BTL IJ (08:34)
[2020-05-28] MEDS: Omnipaque 350 MG/ML 50 ML BTL IJ (08:35)
[2020-05-28] MEDS: Breeza Beverage 473 ML BTL PO (08:36)
== END 2020-05-28 03:11 ==
PROVIDERS: PCP Internal Medicine; Visit Provider Internal Medicine
DX: K86.2 Cyst of pancreas (principal); K80.20 Calculus of gallbladder without cholecystitis without obstruction
CPT/HCPCS: 74170; J3490; Q9967

== ENCOUNTER 2020-12-09 14:32 | Outpatient (REF) | payer OTHER, MEDICAID, SELFPAY ==
[2020-12-09 18:44] LABS: HCT 35.3 % (40.0-50.0); HGB 12.2 g/dL (13.5-17.5); MCHC 34.6 % (32.0-36.0); MCV 89.6 fL (80-95); MPV 9.7 fL (8.0-11.0); Platelet Count 232 10^3/uL (130-400); RBC 3.94 10^6/uL (4.36-5.78); RDW-SD 39.1 fL; WBC 6.15 10^3/uL (4.4-10.8)
[2020-12-09 19:38] LABS: ALT 31 U/L (16-63); AST 17 U/L (15-37); Albumin 3.7 g/dL (3.4-5.0); Alkaline Phosphatase 54 U/L (46-116); Bilirubin, Direct 0.1 mg/dL (0.0-0.2); Bilirubin, Total 0.4 mg/dL (0.2-1.0); Total Protein 6.7 g/dL (6.4-8.2)
== END 2020-12-09 14:33 | disposition home or self-care (01) ==
LOC: NCHCN 14:32
PROVIDERS: PCP Internal Medicine; Visit Provider Internal Medicine
DX: I10 Essential (primary) hypertension (principal); K76.0 Fatty (change of) liver, not elsewhere classified
CPT/HCPCS: 80076; 85027

== ENCOUNTER 2021-01-10 15:48 | Outpatient (REF) | payer OTHER, MEDICAID, SELFPAY ==
[2021-01-12 13:33] LABS: COVID-19 RT-PCR UVMMC Result Negative (Negative)
== END 2021-01-10 15:49 | disposition home or self-care (01) ==
LOC: NCHCN 15:48
PROVIDERS: PCP Internal Medicine; Visit Provider Physician Assistant
DX: Z20.822 Contact with and (suspected) exposure to COVID-19 (principal)
CPT/HCPCS: U0003

== ENCOUNTER 2021-01-21 04:14 | Outpatient (CLI) | payer OTHER, MEDICAID, SELFPAY ==
--- NOTE | 2021-01-21 08:15 | DI.RAD_ITS ---
Exam(s) XR CHEST 2V PA LATERAL EXAM: XR CHEST 2V PA LATERAL CLINICAL HISTORY: persistent cough,R05 TECHNIQUE: 2D digital imaging was performed of the chest. Two images were obtained. PA and lateral views were obtained. COMPARISON: CT CT ABDOMEN WO/W from 05/28/[address] ABDOMEN WO/W from 05/28/2020 FINDINGS: MEDIASTINUM: Normal. HEART: Normal. PULMONARY VASCULATURE: Normal. LUNGS: Clear. There is unchanged scarring in the lung bases. PLEURAL SPACE: No pleural effusion or pneumothorax. BONE:Within normal limits for the patient's age. OTHER FINDINGS:Normal. IMPRESSION: No acute pulmonary findings. DATA REPOSITORY: RADIATION DOSE DELIVERED:
== END 2021-01-21 04:34 ==
PROVIDERS: PCP Internal Medicine; Visit Provider Nurse Practitioner Family
DX: R05 Cough (principal)
CPT/HCPCS: 71046

== ENCOUNTER 2021-02-17 11:46 | Outpatient (CLI) | payer MEDICARE, MEDICAID, SELFPAY ==
--- NOTE | 2021-02-17 12:39 | DI.RAD_ITS ---
Exam(s) XR ABDOMEN FLAT PLATE EXAM: XR ABDOMEN FLAT PLATE CLINICAL HISTORY: r/o constipation DIARRHEA R19.7. TECHNIQUE: 2D digital imaging was performed. COMPARISON: No exams were available for comparison FINDINGS: The bowel gas pattern is nonspecific in the supine position. There is a moderate amount of fecal mat erial in the colon no gross bowel distention evident. No obvious abnormal calcifications. Regional bones appear unremarkable. IMPRESSION: DATA REPOSITORY: RADIATION DOSE DELIVERED:
== END 2021-02-17 12:06 ==
PROVIDERS: PCP Internal Medicine; Visit Provider Nurse Practitioner Family
DX: R19.7 Diarrhea, unspecified (principal)
CPT/HCPCS: 74018

== ENCOUNTER 2021-02-17 13:07 | Outpatient (REF) | payer OTHER, MEDICAID, SELFPAY ==
[2021-02-17 18:01] LABS: ALT 29 U/L (16-63); AST 14 U/L (15-37); Albumin 3.9 g/dL (3.4-5.0); Alkaline Phosphatase 45 U/L (46-116); Anion Gap 11.7 mmol/L (3-11); BUN 25 mg/dL (7-18); Bilirubin, Total 0.3 mg/dL (0.2-1.0); CO2 24.3 mmol/L (21.0-32.0); CREATININE 0.9 mg/dL (0.70-1.30); Calcium 8.9 mg/dL (8.5-10.1); Chloride 101 mmol/L (98-107); Glucose 102 mg/dL (74-106); Potassium 4.4 mmol/L (3.5-5.1); Sodium 137 mmol/L (136-145); Total Protein 7.3 g/dL (6.4-8.2)
[2021-02-17 18:08] LABS: Abs Immature Grans 0.02 10^3/uL (0.0-0.06); Absolute Basophil Count 0.03 10^3/uL (0.0-0.2); Absolute Eosinophil Count 0.06 10^3/uL (0.0-0.7); Absolute Lymphocyte Count 2.32 10^3/uL (1.2-3.4); Absolute Monocyte Count 0.66 10^3/uL (0.1-0.8); Absolute Neutrophil Count 4.74 10^3/uL (1.2-6.7); Basophils % 0.4; Eosinophils % 0.8; HCT 39.6 % (40.0-50.0); HGB 13.4 g/dL (13.5-17.5); Immature Grans % 0.3; Lymphocytes % 29.6; MCH 30.8 pg (27.0-33.0); MCHC 33.8 % (32.0-36.0); MPV 9.6 fL (8.0-11.0); Monocytes % 8.4; Neutrophils % 60.5; Nucleated RBC 0 %; Platelet Count 248 10^3/uL (130-400); RBC 4.35 10^6/uL (4.36-5.78); RDW 11.9 % (11.8-14.1); WBC 7.83 10^3/uL (4.4-10.8)
[2021-02-19 10:58] LABS: COVID-19 RT-PCR UVMMC Result Negative (Negative)
== END 2021-02-17 13:08 | disposition home or self-care (01) ==
LOC: LBN 13:07
PROVIDERS: PCP Internal Medicine; Visit Provider Nurse Practitioner Family
DX: R10.9 Unspecified abdominal pain (principal); R19.7 Diarrhea, unspecified; Z20.822 Contact with and (suspected) exposure to COVID-19
CPT/HCPCS: 80053; U0003; 85025

== ENCOUNTER 2021-06-23 00:43 | Outpatient (CLI) | payer MEDICARE, MEDICAID, SELFPAY ==
--- NOTE | 2021-06-23 12:15 | DI.MRI_ITS ---
Exam(s) MR ABDOMEN WO EXAM: MR ABDOMEN WO CLINICAL HISTORY: ABNORMAL ABDOMINAL IMAGING, R93.5, F/U PANCREATIC CYST ON CT, SLOW GROWTH TECHNIQUE: Multiplanar multisequence MRI was performed with both pre and post contrast infused seque nces. Contrast injected sequences were performed following IV injection of cc of Dotarem. COMPARISON: CT CT ABDOMEN WO/W from 05/28/2020 FINDINGS: This is a limited noninfused study. The patient was apparently not able to tolerate more than 4 sequ ences. Patient was not not ejected with IV contrast. T2 and fat-sat T2 weighted sequences were obta ined. Prior CT scan performed 05/28/2020 was reviewed (slightly over 1 year ago) VISUALIZED LUNG BASES: No pleural effusions evident. There is no ascites evident in the upper abdomen. LIVER: Liver size is normal. There are no obvious focal hepatic lesions. BILIARY: Gallbladder is not seen and is most probably surgically absent, given the appearance of the gallbladder with multiple stones on the CT scan 1 year ago. CBD is not dilated. PANCREAS: There is a solitary cystic mass in the body of the pancreas correspondingto what was descri bed on the April 2020 CT scan. This measures 1.8 by 1.7 by 1.8 cm craniocaudal. These measurement s are similar to the CT scan measurements of 05/28/2020. Pancreatic duct is not dilated. There is n o peripancreatic adenopathy. No vascular encasement. SPLEEN: Spleen is not enlarged and there are no intrasplenic lesions. ADRENALS: Mild thickening of the medial limb of the left adrenal gland is noted, without a distinct n odule and this finding is unchanged from the prior CT scan 1 year ago. KIDNEYS: Small 6 millimeter cyst is noted in the inferior pole the right kidney, unchanged from prior CT scan 1 year ago. No other significant focal renal findings. No hydronephrosis. ABDOMINAL AORTA: Not enlarged and there is no significant para-aortic adenopathy. ANTERIOR ABDOMINAL WALL/GI: There is no evidence of significant anterior abdominal wall hernia in the field of view of this study.No evidence of bowel obstruction. No mesenteric masses. OSSEOUS: There are no lytic osseous lesions in the field of view of this study. IMPRESSION: 1. A solitary 18 x 17 x 18 millimeter unilocular appearing cystic structure in the body of the pancre as, unchanged in size from the CT scan of 05/28/2020, slightly over 1 year ago. No additional focal pancreatic findings. No peripancreatic adenopathy. No dilatation of the pancreatic duct. This find ings either a benign cyst or intra pancreatic cystic neoplasm. Recommend repeat scan in 6 months. 2. No significant focal hepatic lesions evident on this noninfused study. 3. There is no ascites. DATA REPOSITORY:
== END 2021-06-23 01:03 ==
PROVIDERS: PCP Internal Medicine; Visit Provider Internal Medicine
DX: K86.2 Cyst of pancreas (principal); N28.1 Cyst of kidney, acquired; K86.89 Other specified diseases of pancreas
CPT/HCPCS: 74181; 82565

== ENCOUNTER 2021-12-16 13:03 | Emergency (ER) | payer MEDICARE, MEDICAID, SELFPAY ==
[2021-12-16 13:10] VITALS: BP 137/62; PULSE 67; RESP 18; TEMP 36.8; O2SAT 97
--- NOTE | 2021-12-16 13:23 | W.ED.GENAD ---
Discharge Plan Disposition Patient Disposition: HOME Condition: Improving Discharge Details Clinical Impression: Fracture, ribs Primary Care Provider: Andrey Wheeler ED Provider: Oneida Gimenez Home Meds and New Rx's Prescriptions: New tramadol 50 mg tablet 50 mg PO TID PRN (Reason: pain) Qty: 10 0RF Continued albuterol sulfate [Proventil HFA] 90 mcg/actuation HFA aerosol inhaler 2 puff inhalation Q6H PRN (Reason: shortness of breath or wheezing) Qty: 8.5 0RF diphenhydramine HCl [Benadryl] 25 MG capsule 25 - 50 mg PO Q6H PRN citalopram 10 MG tablet 10 mg PO HS fluocinonide 60 ML solution 1 applic Topical BID PRN loperamide 2 MG capsule 2 - 4 mg PO DIRECTED PRN metoprolol tartrate 25 MG tablet 25 mg PO BID multivitamin 1 EACH capsule 1 tab PO DAILY esomeprazole magnesium [Nexium] 40 MG capsule,delayed release(DR/EC) 40 mg PO HS risperidone 3 MG tablet 3 mg PO BID simethicone 125 MG capsule 125 mg PO HS PRN trazodone 100 MG tablet 100 mg PO HS (DME) cane 1 EACH device 1 ea Miscellaneous DIRECTED Qty: 1 0RF Rx Instructions: Use cane for ambulation for gait stability and safety acetaminophen 500 MG tablet 500 - 1,000 mg PO Q6H PRNQty: 20 0RF ropinirole 1 mg Tablet 1 mg PO .QHS magnesium hydroxide [Milk of Magnesia] 30 ML suspension 5 - 15 ml PO QID PRN (Reason: stomach upset) Qty: 0 0RF Rx Instructions: Do not take this at the same time is your doxycycline as it will interact with the medication. Discharge Instructions Instructions: Rib Fracture (ED) Additional Instructions: Your imaging today noted evidence of right sided fractures of your 10th and 11th ribs. There was no evidence of appendicitis or kidney stones on imaging today drink plenty of fluids and get plenty of rest. Use the incentive spirometer to help with taking deep breaths to prevent the development of pneumonia. Drink plenty of fluids and get plenty of rest. Take Tylenol as needed and directed for pain. A prescription for tramadol to take as needed and directed for pain not relieved with Tylenol has been sent electronically to your pharmacy. Follow-up with your primary care doctor in 1 week. Return to the emergency department with any worsening or new concerning symptoms. Discharge Data Discharge Date/Time-TO BE ENTERED AT DEPARTURE: 12/16/21 15:37 Discharge Physician: Oneida Gimenez Medical Decision Making 66-year-old male with history of TBI with cognitive delay presents for right back pain for the past 2 days. Sent by [facility] to rule out possible appendicitis, cholecystitis or muscle strain. Patient appears uncomfortable with movement, and with palpation to the right lower back. He is tender in the right lower quadrant of his abdomen. He denies any fevers, vomiting, urinary symptoms or change in bowel habits so genitourinary or gastrointestinal etiology is less likely. Suspect musculoskeletal etiology but consider kidney stone or appendicitis. He has history of naproxen allergy which is not an actual allergy because of GI bleed. He has Celebrex on his medication list. Will check screening labs, CT abdomen and pelvis, IV Toradol and reassess. Patient asking to leave multiple times. He is questioning the length of time he will need to be in the emergency department. He removed his gown twice and dressed in his regular clothes twice. He was able to be redirected. CT abdomen and pelvis notes right-sided 10th and 11th rib fractures but no evidence of appendicitis or renal stone. Case discussed with patient caregiver from [facility] who notes that patient did have a fall 2 days ago which patient denied. A right rib and PA lateral chest x-ray obtained which noted for old rib fractures but did not identify the new rib fractures. Patient was given tramadol to go and a prescription for tramadol sent electronically to his pharmacy. Advised to follow up with the primary care doctor for re-evaluation. Usual and customary return precautions given prior to discharge. Imaging Data Radiologic Study: Radiologist's impression: CT ABDOMEN ? PELVIS W CLINICAL HISTORY: ? R flank pain, RLQ abd pain.? TECHNIQUE:? Imaging Protocol: Axial computed tomography images with coronal and sagittal reformatted images were created and reviewed CONTRAST MATERIAL:? Intravenous: Omnipaque 350 Contrast volume:100 ml Oral:? no COMPARISON:? CT CT ABDOMEN WO/W from 05/28/2020 FINDINGS: ABDOMEN: Lung Bases: No visible pneumothorax.? Scarring right lung base.? Heart mildly enlarged.? Coronary artery calcifications.? There are nondisplaced fractures of the left posterolateral 10th and 11th ribs. Liver: Normal density. No measurable mass. No evidence of laceration. Gallbladder and biliary tract: Multiple stones are noted in a collapsed gallbladder.? There is no wall thickening.? No biliary? dilation.? Pancreas: Stable 18 millimeter cyst in the body of the pancreas.? Normal density, no abnormal calcifications or inflammatory process. Spleen: Normal. Kidneys: Normal size, contour and axis. No radiodense stones or obstructive uropathy. No masses seen. Adrenal glands: No masses seen. Abdominal Aorta: Abdominal portion non-dilated.? Moderate calcification.? PELVIS:? Bladder:? No gross wall thickening. No calculi.No focal mass. Bowel: Large quantity of stool in the colon particularly ascending through mid descending.? No obstruction or bowel wall thickening. Appendix normal. Peritoneal cavity: No ascites, collection or mesenteric inflammatory response. Bones: Degenerative changes greatest at L4-5 and L5-S1. Reproductive organs: Within normal limits. Lymph nodes: Unremarkable.? Impression: Nondisplaced fractures of the right 10th and 11th ribs. Large quantity of stool. Stable cyst in the body of the pancreas. Cholelithiasis, unchanged. Results of this exam have been verbally communicated with the emergency department provider. XR RIBS RT W PA ? LAT CHEST CLINICAL HISTORY ?fall onto R side, r/o fracture Right lower ribs.? COMPARISON:? CR XR CHEST 2V PA ? LATERAL from 01/21/2021 TECHNIQUE::? PA and lateral views of the chest and four views of the right ribs were performed. FINDINGS: LUNGS: Stable linear scarring at both lung bases.? No evidence of pneumothorax or pulmonary contusion. HEART: Normal. MEDIASTINUM: Normal. BONES: Are multiple old right-sided rib fractures.? The lower ribs are not well seen due to under penetration.? Tenth and 11th rib fractures were seen on CT performed earlier the same day.? A few old left lateral rib fractures are seen.? No gross bony destructive lesion is seen.? Multiple mild midthoracic compression fractures are noted, stable from prior. Soft tissues: Contrast is noted in the right renal collecting system which is not dilated. IMPRESSION: 1. Multiple old rib fractures, right greater than left.? No acute rib fractures are visible.? Lower ribs are not well seen on this exam. 2. No acute pulmonary findings. Lab Data Lab results reviewed: Yes I reviewed the patient's lab results. Labs: Laboratory Tests Range/Units 12/16/21 12/16/21 12/16/21 13:40 13:40 14:10 WBC (4.4-10.8) 10^3/uL 7.76 RBC (4.36-5.78) 10^6/uL 4.06 L Hgb (13.5-17.5) g/dL 12.7 L Hct (40.0-50.0) % 36.1 L MCV (80-95) fL 89 MCH (27.0-33.0) pg 31.3 MCHC (32.0-36.0) % 35.2 RDW (11.8-14.1) % 12.5 Plt Count (130-400) 10^3/uL 206 MPV (8.0-11.0) fL 9.0 Immature Gran % 0.3 Neutrophils % 52.6 Lymphocytes % 35.1 Monocytes % 10.7 Eosinophils % 1.0 Basophils % 0.3 Nucleated RBC % (0.0-0.3) % 0.0 Absolute Neutrophils (1.2-6.7) 10^3/uL 4.09 Absolute Lymphocytes (1.2-3.4) 10^3/uL 2.72 Absolute Monocytes (0.1-0.8) 10^3/uL 0.83 H Absolute Eosinophils (0.0-0.7) 10^3/uL 0.08 Absolute Basophils (0.0-0.2) 10^3/uL 0.02 Sodium (136-145) mmol/L 137 Potassium (3.5-5.1) mmol/L 4.0 Chloride (98-107) mmol/L 102 Carbon Dioxide (21.0-32.0) mmol/L 27.0 Anion Gap (3-11) mmol/L 8.0 BUN (7-18) mg/dL 15 Creatinine (0.70-1.30) mg/dL 0.8 Estimated GFR/1.73 m2 (mL/min/1.73m2) >= 60.00 Glucose (74-106) mg/dL 109 H Calcium (8.5-10.1) mg/dL 8.4 L Total Bilirubin (0.2-1.0) mg/dL 0.3 AST (15-37) U/L 16 ALT (16-63) U/L 26 Alkaline Phosphatase (46-116) U/L 49 Total Protein (6.4-8.2) g/dL 7.4 Albumin (3.4-5.0) g/dL 3.7 Urine Color (Yellow) Yellow Urine Clarity (Clear) Clear Urine pH (5-8) 5.5 Ur Specific [place] (1.005-1.025) 1.015 Urine Protein (Negative) mg/dL Negative Urine Ketones (Negative) mg/dL Negative Urine Blood (Negative) Negative Urine Nitrite (Negative) Negative Urine Bilirubin (Negative) Negative Urine Urobilinogen (Up TO 0.2) EU/dL 0.2 Ur Leukocyte Esterase (Negative) Negative Urine Glucose (Negative) mg/dL Negative HPI General Mode of arrival: ambulatory. Date/Time Provider Initiated Documentation: 12/16/21 13:08. Limitations to Documentation: no limitations. Information obtained by: patient. HPI Narrative: Patient is a 66-year-old male with a history of TBI with cognitive delay presents with right-sided lower back pain for the past 2 days. Patient denies any injury. He states he has been eating normally and denies any nausea, vomiting, urinary symptoms or change in bowel habits. Patient was reportedly seen at the [facility] earlier today for his symptoms and referred here for further evaluation to rule out possible appendicitis, cholecystitis or musculoskeletal strain. Related Data Home Medications Medication Instructions Recorded Confirmed cane #1 ea 06/25/17 12/16/21 citalopram 10 mg tablet 10 mg PO HS 06/25/17 12/16/21 diphenhydramine HCl 25 mg capsule 25 - 50 mg PO Q6H PRN 06/25/17 12/16/21 (Benadryl) esomeprazole magnesium 40 mg 40 mg PO HS 06/25/17 12/16/21 capsule,delayed release (Nexium) fluocinonide 0.05 % topical 1 applic topical BID PRN 06/25/17 12/16/21 solution loperamide 2 mg capsule 2 - 4 mg PO DIRECTED PRN 06/25/17 12/16/21 metoprolol tartrate 25 mg tablet 25 mg PO BID 06/25/17 12/16/21 multivitamin 1 tab PO DAILY 06/25/17 12/16/21 risperidone 3 mg tablet 3 mg PO BID 06/25/17 12/16/21 simethicone 125 mg capsule 125 mg PO HS PRN 06/25/17 12/16/21 trazodone 100 mg tablet 100 mg PO HS 06/25/17 12/16/21 acetaminophen 500 mg tablet 500 - 1,000 mg PO Q6H PRN #20 tabs 10/28/18 12/16/21 magnesium hydroxide 400 mg/5 mL 5 - 15 ml PO QID PRN stomach upset 02/02/19 12/16/21 oral suspension (Milk of Magnesia) #0 mL ropinirole 1 mg tablet 1 mg PO .QHS 02/02/19 12/16/21 albuterol sulfate 90 mcg/actuation 2 puff inhalation Q6H PRN 01/10/21 12/16/21 aerosol inhaler (Proventil HFA) shortness of breath or wheezing #8.5 grams tramadol 50 mg tablet 50 mg PO TID PRN pain #10 tabs 12/16/21 Previous Rx's Medication Instructions Recorded cane #1 ea 06/25/17 acetaminophen 500 mg tablet 500 - 1,000 mg PO Q6H PRN #20 tabs 10/28/18 magnesium hydroxide 400 mg/5 mL 5 - 15 ml PO QID PRN stomach upset 02/02/19 oral suspension (Milk of Magnesia) #0 mL albuterol sulfate 90 mcg/actuation 2 puff inhalation Q6H PRN 01/10/21 aerosol inhaler (Proventil HFA) shortness of breath or wheezing #8.5 grams tramadol 50 mg tablet 50 mg PO TID PRN pain #10 tabs 12/16/21 Allergies Allergy/AdvReac Type Severity Reaction Status Date / Time naproxen AdvReac Mild GI bleed Verified 12/16/21 13:13 General Stated Complaint: Abd Prob MARIA L: 3 Review of Systems All systems reviewed & are unremarkable except as noted in HPI and below Constitutional Constitutional: Denies chills, Denies excessive sweating, Denies fatigue, Denies fever(s), Denies weakness and Denies weight loss Eyes Eyes: Reports system reviewed and no additional complaints, except as documented and Denies blurry vision ENT Ears, Nose, Mouth, and Throat: Denies vertigo, Denies dizziness, Denies otalgia, Denies nasal congestion, Denies sore throat and Denies throat swelling Cardiovascular Cardiovascular: Denies chest pain, Denies syncope, Denies rapid heart rate and Denies dyspnea Respiratory Respiratory: Denies chest congestion, Denies cough, Denies pain on inspiration and Denies dyspnea Gastrointestinal Gastrointestinal: Denies abdominal pain, Denies diarrhea and Denies vomiting Genitourinary Genitourinary: Denies hematuria, Denies dysuria and Denies flank pain Musculoskeletal Musculoskeletal: Reports back pain and Denies joint swelling Integumentary/Breasts Skin/Breast: Denies lesions and Denies rash Neurologic Neurologic: Denies behavioral changes, Denies confusion, Denies vertigo, Denies dizziness, Denies syncope, Denies localized weakness and Denies weakness Psychiatric Psychiatric: Denies behavioral changes, Denies confusion and Denies depression Endocrine Endocrine: Denies excessive sweating and Denies fatigue Hematologic/Lymphatic Hematologic/Lymphatic: Denies easy bruising and Denies lymphadenopathy Allergic/Immunologic Allergic/Immunologic: Denies throat swelling PFSH All Active Problems (Updated 12/16/21 @ 15:43 by Oneida Gimenez DO) Fracture, ribs (Acute) Sensorineural hearing loss of both ears (Acute) Medical History (Updated 12/16/21 @ 15:43 by Oneida Gimenez DO) TBI (traumatic brain injury) Surgical History (Updated 12/16/21 @ 15:43 by Oneida Gimenez DO) History of elbow surgery Social History Smoking/Tobacco Use Status: Never Smoking risk assessment performed?: Yes Alcohol Intake: never Drug use: Never Substance use type: does not use Do you feel safe at home: Yes Do you feel safe in your relationship?: Yes Exam Const General: cooperative and healthy appearing Orientation: alert and awake HENMT Head: normal to inspection Ears: hearing grossly normal bilaterally and external ears normal General nose exam: external nose normal Face and sinus: normal facial exam Mouth: oral mucosae normal Teeth and gingiva: dentition normal Throat: posterior oropharynx normal Eyes General: appearance normal, both eyes and all related structures Eyelids: eyelids normal Pupils: PERRL EOM: EOM intact bilaterally Neck Neck: normal visual inspection Lymphatic: no lymphadenopathy noted Chest Chest: normal inspection of the chest Resp Effort & Inspection: normal respiratory effort and able to speak in complete sentences Auscultation: clear to auscultation bilaterally Cardio Rate: regular rate Rhythm: regular rhythm GI Inspection: normal to inspection Palpation: soft, not firm, no guarding, no hepatosplenomegaly, no masses and tender in the RLQ Auscultation: normal bowel sounds Back/Spine/Pelvis Back: no CVA tenderness Back/spine/pelvis image: 1. Tenderness to palpation. No erythema, edema, ecchymosis, rash, lesions, crepitus or step-off. Skin General skin exam: no rashes or lesions noted Neuro General: patient alert and patient awake Cognition: normal cognition Speech: speech normal Gait: normal gait Motor: muscle tone normal throughout Sensory Exam: no sensory deficits noted Extrem General: normal to inspection, full ROM, capillary refill normal and no edema Other: B/L DP/PT pulses intact. Psych Appearance: grossly normal Mental Status: mental status grossly normal Speech and Movement: speech and movement normal Affect: normal affect Thought Process: normal Course Vital Signs Vital signs: Vital Signs Temperature 98.2 F 12/16/21 13:10 Pulse 67 12/16/21 13:10 Respiratory Rate 18 12/16/21 13:10 Blood Pressure 137/62 12/16/21 13:10 Pulse Oximetry 97 12/16/21 13:10 Temperature 98.2 F 12/16/21 13:10 Temperature Source Temporal Artery Scan 12/16/21 13:10 Pulse 67 12/16/21 13:10 Respiratory Rate 18 12/16/21 13:10 Respiratory Effort Non-Labored 12/16/21 13:13 Blood Pressure 137/62 12/16/21 13:10 Blood Pressure Position Sitting 12/16/21 13:10 Pulse Oximetry 97 12/16/21 13:10 Oxygen Delivery Method Room Air 12/16/21 13:10 Oxygen Flow Rate 0 12/16/21 13:10
[2021-12-16 13:48] LABS: Abs Immature Grans 0.02 10^3/uL (0.0-0.06); Absolute Basophil Count 0.02 10^3/uL (0.0-0.2); Absolute Eosinophil Count 0.08 10^3/uL (0.0-0.7); Absolute Lymphocyte Count 2.72 10^3/uL (1.2-3.4); Absolute Monocyte Count 0.83 10^3/uL (0.1-0.8); Absolute Neutrophil Count 4.09 10^3/uL (1.2-6.7); Basophils % 0.3; HCT 36.1 % (40.0-50.0); HGB 12.7 g/dL (13.5-17.5); Immature Grans % 0.3; Lymphocytes % 35.1; MCH 31.3 pg (27.0-33.0); MCHC 35.2 % (32.0-36.0); MCV 89 fL (80-95); Monocytes % 10.7; Neutrophils % 52.6; Platelet Count 206 10^3/uL (130-400); RBC 4.06 10^6/uL (4.36-5.78); RDW 12.5 % (11.8-14.1); RDW-SD 40.6 fL; WBC 7.76 10^3/uL (4.4-10.8)
[2021-12-16] MEDS: Ketorolac 30 MG/ML VIAL IVP (13:53)
[2021-12-16 14:02] LABS: ALT 26 U/L (16-63); AST 16 U/L (15-37); Albumin 3.7 g/dL (3.4-5.0); Alkaline Phosphatase 49 U/L (46-116); BUN 15 mg/dL (7-18); Bilirubin, Total 0.3 mg/dL (0.2-1.0); CREATININE 0.8 mg/dL (0.70-1.30); Calcium 8.4 mg/dL (8.5-10.1); Chloride 102 mmol/L (98-107); Glucose 109 mg/dL (74-106); Sodium 137 mmol/L (136-145); Total Protein 7.4 g/dL (6.4-8.2)
--- NOTE | 2021-12-16 14:15 | DI.RAD_ITS ---
Exam(s) XR RIBS RT W PA LAT CHEST CLINICAL HISTORY fall onto R side, r/o fracture Right lower ribs. COMPARISON: CR XR CHEST 2V PA LATERAL from 01/21/2021 TECHNIQUE:: PA and lateral views of the chest and four views of the right ribs were performed. FINDINGS: LUNGS: Stable linear scarring at both lung bases. No evidence of pneumothorax or pulmonary contusion . HEART: Normal. MEDIASTINUM: Normal. BONES: Are multiple old right-sided rib fractures. The lower ribs are not well seen due to under pen etration. Tenth and 11th rib fractures were seen on CT performed earlier the same day. A few old le ft lateral rib fractures are seen. No gross bony destructive lesion is seen. Multiple mild midthora cic compression fractures are noted, stable from prior. Soft tissues: Contrast is noted in the right renal collecting system which is not dilated. IMPRESSION: 1. Multiple old rib fractures, right greater than left. No acute rib fractures are visible. Lower r ibs are not well seen on this exam. 2. No acute pulmonary findings.
[2021-12-16 14:21] LABS: Bilirubin Negative (Negative); Blood Negative (Negative); Clarity Clear (Clear); Glucose Negative (Negative); Ketones Negative (Negative); Leukocyte Esterase Negative (Negative); Nitrite Negative (Negative); Specific Gravity 1.015 (1.005-1.025); Urobilinogen 0.2 EU/dL (Up TO 0.2); pH 5.5 (5-8)
[2021-12-16] MEDS: Omnipaque 350 MG/ML 100 ML BTL IJ (14:26)
[2021-12-16] MEDS: Normal Saline Flush 10 ML SYR IVP (14:27)
--- NOTE | 2021-12-16 14:28 | DI.CT_ITS ---
Exam(s) CT ABDOMEN PELVIS W EXAM: CT ABDOMEN PELVIS W CLINICAL HISTORY: R flank pain, RLQ abd pain. TECHNIQUE: Imaging Protocol: Axial computed tomography images with coronal and sagittal reformatted images were created and reviewed CONTRAST MATERIAL: Intravenous: Omnipaque 350 Contrast volume:100 ml Oral: no COMPARISON: CT CT ABDOMEN WO/W from 05/28/2020 FINDINGS: ABDOMEN: Lung Bases: No visible pneumothorax. Scarring right lung base. Heart mildly enlarged. Coronary art aj calcifications. There are nondisplaced fractures of the left posterolateral 10th and 11th ribs. Liver: Normal density. No measurable mass. No evidence of laceration. Gallbladder and biliary tract: Multiple stones are noted in a collapsed gallbladder. There is no wal l thickening. No biliary dilation. Pancreas: Stable 18 millimeter cyst in the body of the pancreas. Normal density, no abnormal calcifi cations or inflammatory process. Spleen: Normal. Kidneys: Normal size, contour and axis. No radiodense stones or obstructive uropathy. No masses seen. Adrenal glands: No masses seen. Abdominal Aorta: Abdominal portion non-dilated. Moderate calcification. PELVIS: Bladder: No gross wall thickening. No calculi.No focal mass. Bowel: Large quantity of stool in the colon particularly ascending through mid descending. No obstru ction or bowel wall thickening. Appendix normal. Peritoneal cavity: No ascites, collection or mesenteric inflammatory response. Bones: Degenerative changes greatest at L4-5 and L5-S1. Reproductive organs: Within normal limits. Lymph nodes: Unremarkable. Impression: Nondisplaced fractures of the right 10th and 11th ribs. Large quantity of stool. Stable cyst in the body of the pancreas. Cholelithiasis, unchanged. Results of this exam have been verbally communicated with the emergency department provider. RADIATION DOSE DELIVERED: 1,363.92mGy.cm Total DLP DATA REPOSITORY: All CT scans at this facility are submitted to the National Radiology Data Registry (NRDR) Dose Index Registry (DIR) with the [employer] (A[employer]). RADIATION OPTIMIZATION: All CT scans at this facility use at least one of these dose optimization te chniques: automated exposure control; mA and/or kV adjustment per patient size (includes targeted exa ms where dose is matched to clinical indication); or iterative reconstruction.
[2021-12-16 15:38] VITALS: BP 132/70; PULSE 68; RESP 14; O2SAT 98
== END 2021-12-16 15:37 | disposition home or self-care (01) ==
PROVIDERS: Emergency Provider Physician Assistant; PCP Internal Medicine
DX: S22.41XA Multiple fractures of ribs, right side, initial encounter for closed fracture (principal); M54.50 Low back pain, unspecified; R10.813 Right lower quadrant abdominal tenderness; W19.XXXA Unspecified fall, initial encounter
CPT/HCPCS: 36415; 80053; 96361; 96374; 99285; 71046; 71100; 74177; 81003; 85025; 99284; J1885; J3490

== ENCOUNTER 2021-12-16 18:25 | Outpatient (REF) | payer MEDICARE, MEDICAID, SELFPAY ==
[2021-12-16 21:17] LABS: Bilirubin Negative (Negative); Blood Negative (Negative); Clarity Clear (Clear); Glucose Negative (Negative); Ketones Negative (Negative); Leukocyte Esterase Negative (Negative); Nitrite Negative (Negative); Urobilinogen 0.2 EU/dL (Up TO 0.2)
== END 2021-12-16 18:26 | disposition home or self-care (01) ==
LOC: NCHCN 18:25
PROVIDERS: PCP Internal Medicine; Visit Provider Nurse Practitioner Family
DX: N39.0 Urinary tract infection, site not specified (principal)
CPT/HCPCS: 81003

== ENCOUNTER 2022-01-10 12:06 | Inpatient (IN) | payer MEDICARE, MEDICAID, SELFPAY ==
[2022-01-10 12:48] LABS: Bilirubin Negative (Negative); Blood Negative (Negative); Clarity Clear (Clear); Glucose Negative (Negative); Ketones Negative (Negative); Leukocyte Esterase Negative (Negative); Nitrite Negative (Negative); Urobilinogen 0.2 EU/dL (Up TO 0.2)
[2022-01-10 12:50] LABS: Source Nasal/Nares
[2022-01-10 12:52] LABS: Abs Immature Grans 0.01 10^3/uL (0.0-0.06); Absolute Basophil Count 0.03 10^3/uL (0.0-0.2); Absolute Eosinophil Count 0.03 10^3/uL (0.0-0.7); Absolute Lymphocyte Count 2.15 10^3/uL (1.2-3.4); Absolute Monocyte Count 0.48 10^3/uL (0.1-0.8); Absolute Neutrophil Count 3.45 10^3/uL (1.2-6.7); Basophils % 0.5; Eosinophils % 0.5; HCT 36.2 % (40.0-50.0); HGB 12.8 g/dL (13.5-17.5); Immature Grans % 0.2; MCH 31.8 pg (27.0-33.0); MCHC 35.4 % (32.0-36.0); MCV 90 fL (80-95); MPV 8.8 fL (8.0-11.0); Monocytes % 7.8; Platelet Count 224 10^3/uL (130-400); RBC 4.02 10^6/uL (4.36-5.78); RDW 12.5 % (11.8-14.1); RDW-SD 41.1 fL; WBC 6.15 10^3/uL (4.4-10.8)
--- NOTE | 2022-01-10 13:05 | W.ED.GENAD ---
Discharge Plan Disposition Patient Disposition: STILL A PATIENT Condition: Stable Discharge Details Clinical Impression: Combative behavior, History of traumatic brain injury Primary Care Provider: Andrey Wheeler ED Provider: Estuardo Vela Home Meds and New Rx's Prescriptions: No Action albuterol sulfate [Proventil HFA] 90 mcg/actuation HFA aerosol inhaler 2 puff inhalation Q6H PRN (Reason: shortness of breath or wheezing) Qty: 8.5 0RF diphenhydramine HCl [Benadryl] 25 MG capsule 25 - 50 mg PO Q6H PRN citalopram 10 MG tablet 20 mg PO HS fluocinonide 60 ML solution 1 applic Topical BID PRN loperamide 2 MG capsule 2 - 4 mg PO DIRECTED PRN metoprolol tartrate 25 MG tablet 50 mg PO BID multivitamin 1 EACH capsule 1 tab PO DAILY esomeprazole magnesium [Nexium] 40 MG capsule,delayed release(DR/EC) 40 mg PO HS risperidone 3 MG tablet 12 mg PO BID simethicone 125 MG capsule 125 mg PO HS PRN trazodone 100 MG tablet 150 mg PO HS (DME) cane 1 EACH device 1 ea Miscellaneous DIRECTED Qty: 1 0RF Rx Instructions: Use cane for ambulation for gait stability and safety acetaminophen 500 MG tablet 500 - 1,000 mg PO Q6H PRNQty: 20 0RF ropinirole 1 mg Tablet 1 mg PO .QHS magnesium hydroxide [Milk of Magnesia] 30 ML suspension 5 - 15 ml PO QID PRN (Reason: stomach upset) Qty: 0 0RF Rx Instructions: Do not take this at the same time is your doxycycline as it will interact with the medication. tramadol 50 mg tablet 50 mg PO TID PRN (Reason: pain) Qty: 10 0RF sennosides 8.6 mg Tablet 8.6 mg PO PRN PRN lisinopril-hydrochlorothiazide 20-12.5 mg tablet 2 tab PO DAILY pantoprazole 40 mg tablet,delayed release (DR/EC) 40 mg PO DAILY ferrous sulfate 325 mg (65 mg iron) tablet 325 mg PO DAILY celecoxib 100 mg capsule 200 mg PO DAILY Medical Decision Making <Oneida Gimenez DO - Last Filed: 01/10/22 20:29> 1200 -- 66-year-old male with a history of TBI presents for medical clearance with plan for transfer to [place] for combative and and agitated behavior today at [facility] today. He was reportedly throwing rocks at [facility] staff. Patient denies any acute complaints and states I feel great . No obvious acute findings on exam. Will obtain screening labs but pt is medically cleared from my perspective and will call mental health. 1300 --labs reviewed and unremarkable. Patient evaluated by Shahla with mental health -she states that patient endorsed to her that he does not want to be here. She will discuss with her team and call back regarding plan. 1830 --multiple attempts made to determine plan with [facility] after discussion involving care management, nursing supervisor weaving and charge nurse but no plan made by [facility]. [facility] had stated to care management that [facility] is refusing to take patient back due to his combative behavior earlier today. Care management also discussed with [place] and they were not aware of patient. We will hold patient in the ED until a plan is determined. Patient has been cooperative. Case endorsed to Dr. Amezquita to follow-up with [facility] regarding plan. Medical Records Medical records reviewed: Yes I reviewed the patient's medical records. Lab Data Lab results reviewed: Yes I reviewed the patient's lab results. Labs: Laboratory Tests Range/Units 01/10/22 01/10/22 01/10/22 12:32 12:32 12:32 WBC (4.4-10.8) 10^3/uL 6.15 RBC (4.36-5.78) 10^6/uL 4.02 L Hgb (13.5-17.5) g/dL 12.8 L Hct (40.0-50.0) % 36.2 L MCV (80-95) fL 90 MCH (27.0-33.0) pg 31.8 MCHC (32.0-36.0) % 35.4 RDW (11.8-14.1) % 12.5 Plt Count (130-400) 10^3/uL 224 MPV (8.0-11.0) fL 8.8 Immature Gran % 0.2 Neutrophils % 56.0 Lymphocytes % 35.0 Monocytes % 7.8 Eosinophils % 0.5 Basophils % 0.5 Nucleated RBC % (0.0-0.3) % 0.0 Absolute Neutrophils (1.2-6.7) 10^3/uL 3.45 Absolute Lymphocytes (1.2-3.4) 10^3/uL 2.15 Absolute Monocytes (0.1-0.8) 10^3/uL 0.48 Absolute Eosinophils (0.0-0.7) 10^3/uL 0.03 Absolute Basophils (0.0-0.2) 10^3/uL 0.03 Sodium (136-145) mmol/L 135 L Potassium (3.5-5.1) mmol/L 3.9 Chloride (98-107) mmol/L 100 Carbon Dioxide (21.0-32.0) mmol/L 26.2 Anion Gap (3-11) mmol/L 8.8 BUN (7-18) mg/dL 22 H Creatinine (0.70-1.30) mg/dL 1.0 Est GFR (CKD-EPI 2020) (mL/min/1.73m2) 83.52 Glucose (74-106) mg/dL 110 H Calcium (8.5-10.1) mg/dL 8.7 Total Bilirubin (0.2-1.0) mg/dL 0.5 AST (15-37) U/L 15 ALT (16-63) U/L 32 Alkaline Phosphatase (46-116) U/L 57 Total Protein (6.4-8.2) g/dL 7.8 Albumin (3.4-5.0) g/dL 4.1 Urine Color (Yellow) Urine Clarity (Clear) Urine pH (5-8) Ur Specific [place] (1.005-1.025) Urine Protein (Negative) mg/dL Urine Ketones (Negative) mg/dL Urine Blood (Negative) Urine Nitrite (Negative) Urine Bilirubin (Negative) Urine Urobilinogen (Up TO 0.2) EU/dL Ur Leukocyte Esterase (Negative) Urine Glucose (Negative) mg/dL Urine Opiates Screen (Negative) Urine Methadone Screen (Negative) Ur Barbiturates Screen (Negative) Ur Tricyclics Screen (Negative) Ur Amphetamines Screen (Negative) U Benzodiazepines Scrn (Negative) Urine Cocaine Screen (Negative) Ur THC Screen (Negative) Ethyl Alcohol (<10) mg/dL < 3.0 COVID-19 Source Nasal/Nares SARS-CoV-2 (PCR) (Negative) Negative Range/Units 01/10/22 01/10/22 12:35 12:35 WBC (4.4-10.8) 10^3/uL RBC (4.36-5.78) 10^6/uL Hgb (13.5-17.5) g/dL Hct (40.0-50.0) % MCV (80-95) fL MCH (27.0-33.0) pg MCHC (32.0-36.0) % RDW (11.8-14.1) % Plt Count (130-400) 10^3/uL MPV (8.0-11.0) fL Immature Gran % Neutrophils % Lymphocytes % Monocytes % Eosinophils % Basophils % Nucleated RBC % (0.0-0.3) % Absolute Neutrophils (1.2-6.7) 10^3/uL Absolute Lymphocytes (1.2-3.4) 10^3/uL Absolute Monocytes (0.1-0.8) 10^3/uL Absolute Eosinophils (0.0-0.7) 10^3/uL Absolute Basophils (0.0-0.2) 10^3/uL Sodium (136-145) mmol/L Potassium (3.5-5.1) mmol/L Chloride (98-107) mmol/L Carbon Dioxide (21.0-32.0) mmol/L Anion Gap (3-11) mmol/L BUN (7-18) mg/dL Creatinine (0.70-1.30) mg/dL Est GFR (CKD-EPI 2020) (mL/min/1.73m2) Glucose (74-106) mg/dL Calcium (8.5-10.1) mg/dL Total Bilirubin (0.2-1.0) mg/dL AST (15-37) U/L ALT (16-63) U/L Alkaline Phosphatase (46-116) U/L Total Protein (6.4-8.2) g/dL Albumin (3.4-5.0) g/dL Urine Color (Yellow) Yellow Urine Clarity (Clear) Clear Urine pH (5-8) 6.0 Ur Specific [place] (1.005-1.025) 1.020 Urine Protein (Negative) mg/dL Negative Urine Ketones (Negative) mg/dL Negative Urine Blood (Negative) Negative Urine Nitrite (Negative) Negative Urine Bilirubin (Negative) Negative Urine Urobilinogen (Up TO 0.2) EU/dL 0.2 Ur Leukocyte Esterase (Negative) Negative Urine Glucose (Negative) mg/dL Negative Urine Opiates Screen (Negative) Negative Urine Methadone Screen (Negative) Negative Ur Barbiturates Screen (Negative) Negative Ur Tricyclics Screen (Negative) Negative Ur Amphetamines Screen (Negative) Negative U Benzodiazepines Scrn (Negative) Negative Urine Cocaine Screen (Negative) Negative Ur THC Screen (Negative) Negative Ethyl Alcohol (<10) mg/dL COVID-19 Source SARS-CoV-2 (PCR) (Negative) <Norbert Amezquita MD - Last Filed: 01/10/22 22:22> 1200 -- 66-year-old male with a history of TBI presents for medical clearance with plan for transfer to [place] for combative and and agitated behavior today at [facility] today. He was reportedly throwing rocks at [facility] staff. Patient denies any acute complaints and states I feel great . No obvious acute findings on exam. Will obtain screening labs but pt is medically cleared from my perspective and will call mental health. 1300 --labs reviewed and unremarkable. Patient evaluated by Shahla with [facility] -she states that patient endorsed to her that he does not want to be here. She will discuss with her team and call back regarding plan. 1830 --multiple attempts made to determine plan with [facility] after discussion involving care management, nursing supervisor weaving and charge nurse but no plan made by [facility]. [facility] had stated to care management that [facility] is refusing to take patient back due to his combative behavior earlier today. Care management also discussed with [place] and they were not aware of patient. We will hold patient in the ED until a plan is determined. Patient has been cooperative. Case endorsed to Dr. Amezquita to follow-up with mental [facility] regarding plan. pt has been calm since being here, no si/hi so cpso cancelled. mental health evaluated earlier, state doesn't meet criteria for hospitalization, no place for him to go tonight and given his mental health history do not feel he can be discharged without safe dispo, will wait until cm can reassess. HPI <Oneida Gimenez DO - Last Filed: 01/10/22 20:29> General Mode of arrival: ambulatory. Date/Time Provider Initiated Documentation: 01/10/22 12:20. Limitations to Documentation: no limitations. Information obtained by: patient. HPI Narrative: Pt is a 66-year-old male with a known history of TBI who resides at [facility] for medical clearance with plan for transfer to [place] per [facility] staff. Per report from [facility] staff whol called to inform of pt's arrival, pt was combative and agitated this morning, reportedly throwing rocks at staff. He was reported not to be combative with EMS staff and stated that he only wanted food. It was reported that he was cooperative of throughout the ride with EMS staff. Patient denies any acute complaints and states I feel great . Patient states he knows he was sent here because I have a temper because I grew up with 5 brothers. Related Data Home Medications Medication Instructions Recorded Confirmed cane #1 ea 06/25/17 12/16/21 citalopram 10 mg tablet 20 mg PO HS 06/25/17 01/10/22 diphenhydramine HCl 25 mg capsule 25 - 50 mg PO Q6H PRN 06/25/17 01/10/22 (Benadryl) esomeprazole magnesium 40 mg 40 mg PO HS 06/25/17 12/16/21 capsule,delayed release (Nexium) fluocinonide 0.05 % topical 1 applic topical BID PRN 06/25/17 01/10/22 solution loperamide 2 mg capsule 2 - 4 mg PO DIRECTED PRN 06/25/17 01/10/22 metoprolol tartrate 25 mg tablet 50 mg PO BID 06/25/17 01/10/22 multivitamin 1 tab PO DAILY 06/25/17 12/16/21 risperidone 3 mg tablet 12 mg PO BID 06/25/17 12/16/21 simethicone 125 mg capsule 125 mg PO HS PRN 06/25/17 01/10/22 trazodone 100 mg tablet 150 mg PO HS 06/25/17 01/10/22 acetaminophen 500 mg tablet 500 - 1,000 mg PO Q6H PRN #20 tabs 10/28/18 01/10/22 magnesium hydroxide 400 mg/5 mL 5 - 15 ml PO QID PRN stomach upset 02/02/19 01/10/22 oral suspension (Milk of Magnesia) #0 mL ropinirole 1 mg tablet 1 mg PO .QHS 02/02/19 01/10/22 albuterol sulfate 90 mcg/actuation 2 puff inhalation Q6H PRN 01/10/21 01/10/22 aerosol inhaler (Proventil HFA) shortness of breath or wheezing #8.5 grams tramadol 50 mg tablet 50 mg PO TID PRN pain #10 tabs 12/16/21 celecoxib 100 mg capsule 200 mg PO DAILY 01/10/22 01/10/22 ferrous sulfate 325 mg (65 mg 325 mg PO DAILY 01/10/22 01/10/22 iron) tablet lisinopril 20 2 tab PO DAILY 01/10/22 01/10/22 mg-hydrochlorothiazide 12.5 mg tablet pantoprazole 40 mg tablet,delayed 40 mg PO DAILY 01/10/22 01/10/22 release sennosides 8.6 mg tablet 8.6 mg PO PRN PRN 01/10/22 01/10/22 Previous Rx's Medication Instructions Recorded cane #1 ea 06/25/17 acetaminophen 500 mg tablet 500 - 1,000 mg PO Q6H PRN #20 tabs 10/28/18 magnesium hydroxide 400 mg/5 mL 5 - 15 ml PO QID PRN stomach upset 02/02/19 oral suspension (Milk of Magnesia) #0 mL albuterol sulfate 90 mcg/actuation 2 puff inhalation Q6H PRN 01/10/21 aerosol inhaler (Proventil HFA) shortness of breath or wheezing #8.5 grams tramadol 50 mg tablet 50 mg PO TID PRN pain #10 tabs 12/16/21 Allergies Allergy/AdvReac Type Severity Reaction Status Date / Time naproxen AdvReac Mild GI bleed Verified 01/10/22 12:16 General Stated Complaint: PsychEval MARIA L: 2 Review of Systems <Oneida Gimenez DO - Last Filed: 01/10/22 20:29> All systems reviewed & are unremarkable except as noted in HPI and below Constitutional Constitutional: Reports as per HPI, Denies chills and Denies fever(s) Eyes Eyes: Denies blurry vision ENT Ears, Nose, Mouth, and Throat: Denies dizziness, Denies sore throat and Denies throat swelling Cardiovascular Cardiovascular: Denies chest pain and Denies dyspnea Respiratory Respiratory: Denies cough and Denies dyspnea Gastrointestinal Gastrointestinal: Denies abdominal pain, Denies diarrhea and Denies vomiting Genitourinary Genitourinary: Denies hematuria and Denies dysuria Musculoskeletal Musculoskeletal: Denies back pain and Denies numbness Integumentary/Breasts Skin/Breast: Denies lesions and Denies rash Neurologic Neurologic: Denies dizziness, Denies localized weakness and Denies numbness Allergic/Immunologic Allergic/Immunologic: Denies throat swelling PFSH <Oneida Gimenez DO - Last Filed: 01/10/22 20:29> All Active Problems (Updated 01/10/22 @ 20:29 by Oneida Gimenez DO) Combative behavior (Acute) History of traumatic brain injury (Acute) Fracture, ribs (Acute) Sensorineural hearing loss of both ears (Acute) Medical History (Updated 01/10/22 @ 20:29 by Oneida Gimenez DO) TBI (traumatic brain injury) Surgical History (Updated 12/16/21 @ 15:43 by Oneida Gimenez DO) History of elbow surgery Social History Smoking/Tobacco Use Status: Never Smoking risk assessment performed?: Yes Alcohol Intake: never Drug use: Never Substance use type: does not use Do you feel safe at home: Yes Do you feel safe in your relationship?: Yes Exam <Oneida Gimenez DO - Last Filed: 01/10/22 20:29> Const General: cooperative, healthy appearing and no acute distress Orientation: alert, awake and oriented x3 HENMT Head: normal to inspection Mouth: oral mucosae normal Eyes General: appearance normal, both eyes and all related structures Neck Neck: normal visual inspection Resp Effort & Inspection: normal respiratory effort and able to speak in complete sentences Auscultation: clear to auscultation bilaterally Cardio Rate: regular rate Rhythm: regular rhythm GI Inspection: obesity Palpation: soft and nontender Skin General skin exam: no rashes or lesions noted Neuro General: patient alert, patient awake, patient oriented x3, gait normal and no meningeal signs Speech: abnormal speech slurred (baseline due to TBI) Motor: muscle tone normal throughout Extrem General: normal to inspection and full ROM Psych Appearance: grossly normal Mental Status: mental status grossly normal Speech and Movement: slurred speech (baseline due to TBI) Affect: normal affect Attitude: cooperative Thought Process: normal Insight: insight good Course <Oneida Gabriel Gimenez, DO - Last Filed: 01/10/22 20:29> Vital Signs Vital signs: Respiratory Effort 01/10/22 12:13 Lab/Test Results Lab/Test Results: Laboratory Tests Range/Units 01/10/22 01/10/22 01/10/22 12:32 12:32 12:35 WBC (4.4-10.8) 10^3/uL 6.15 RBC (4.36-5.78) 10^6/uL 4.02 L Hgb (13.5-17.5) g/dL 12.8 L Hct (40.0-50.0) % 36.2 L MCV (80-95) fL 90 MCH (27.0-33.0) pg 31.8 MCHC (32.0-36.0) % 35.4 RDW (11.8-14.1) % 12.5 Plt Count (130-400) 10^3/uL 224 MPV (8.0-11.0) fL 8.8 Immature Gran % 0.2 Neutrophils % 56.0 Lymphocytes % 35.0 Monocytes % 7.8 Eosinophils % 0.5 Basophils % 0.5 Nucleated RBC % (0.0-0.3) % 0.0 Absolute Neutrophils (1.2-6.7) 10^3/uL 3.45 Absolute Lymphocytes (1.2-3.4) 10^3/uL 2.15 Absolute Monocytes (0.1-0.8) 10^3/uL 0.48 Absolute Eosinophils (0.0-0.7) 10^3/uL 0.03 Absolute Basophils (0.0-0.2) 10^3/uL 0.03 Urine Color (Yellow) Yellow Urine Clarity (Clear) Clear Urine pH (5-8) 6.0 Ur Specific [place] (1.005-1.025) 1.020 Urine Protein (Negative) mg/dL Negative Urine Ketones (Negative) mg/dL Negative Urine Blood (Negative) Negative Urine Nitrite (Negative) Negative Urine Bilirubin (Negative) Negative Urine Urobilinogen (Up TO 0.2) EU/dL 0.2 Ur Leukocyte Esterase (Negative) Negative Urine Glucose (Negative) mg/dL Negative COVID-19 Source Nasal/Nares Sign Out <Oneida Gimenez DO - Last Filed: 01/10/22 20:29> Sign Out Data: Sign Out Comment: History of traumatic brain injury. Reported combative behavior at [facility] today where patient resides. Sent here for medical clearance per [facility] with potential plan for transfer to [place]. Patient is medically cleared. Follow-up with [facility] human services regarding plan. Last updated by Oneida Gimenez DO at 01/10/22 20:34 Sign Out Comment: hx of tbi, came in after being combative at residence, cleared by mental health but would not be accepted back at residence, will need CM eval Last updated by Norbert Amezquita MD at 01/10/22 22:48 Sign Out Comment: Stable throughout the shift. No interventions needed. Case management is still working on a way to transition the patient to a care facility. Last updated by Jeromy Sánchez DO at 01/11/22 15:32 Sign Out Comment: Stable thru evening shift, awaits placement Last updated by Oskar Moulton MD at 01/11/22 22:20
[2022-01-10 13:11] LABS: *AMPHETAMINES SCREEN URINE Negative (Negative); *BARBITURATES SCREEN URINE Negative (Negative); *BENZODIAZEPINES SCREEN URINE Negative (Negative); Cannabinoids THC Negative (Negative); Cocaine Screen,Urine Negative (Negative); METHADONE URINE SCREEN Negative (Negative); OPIATES URINE SCREEN Negative (Negative)
[2022-01-10 13:14] LABS: Tricyclic Antidepressants Negative (Negative)
[2022-01-10 13:15] LABS: ALT 32 U/L (16-63); AST 15 U/L (15-37); Albumin 4.1 g/dL (3.4-5.0); Alkaline Phosphatase 57 U/L (46-116); Anion Gap 8.8 mmol/L (3-11); BUN 22 mg/dL (7-18); Bilirubin, Total 0.5 mg/dL (0.2-1.0); CO2 26.2 mmol/L (21.0-32.0); Calcium 8.7 mg/dL (8.5-10.1); Chloride 100 mmol/L (98-107); Estimated GFR 83.52 (mL/min/1.73m2); Glucose 110 mg/dL (74-106); Potassium 3.9 mmol/L (3.5-5.1); Sodium 135 mmol/L (136-145); Total Protein 7.8 g/dL (6.4-8.2)
[2022-01-10 13:21] LABS: ETHANOL BLOOD < 3.0 mg/dL (<10)
[2022-01-10 13:23] LABS: COVID-19 PCR Negative (Negative)
[2022-01-10] MEDS: traZODone 100 MG TAB 150 MG PO (20:58)
[2022-01-10] MEDS: Metoprolol 50 MG TAB PO (20:58)
[2022-01-10] MEDS: Citalopram 20 MG TAB PO (20:59)
[2022-01-10] MEDS: LORazepam 1 MG TAB 2 MG PO (20:59)
[2022-01-11] MEDS: Celecoxib 200 MG CAP PO (07:37)
[2022-01-11] MEDS: Metoprolol 50 MG TAB PO ×2 (07:37→21:21)
[2022-01-11] MEDS: Ferrous Sulfate 325 MG TAB PO (07:37)
[2022-01-11] MEDS: Esomeprazole 40 MG CAPCR PO (07:37)
[2022-01-11 08:35] VITALS: BP 109/69; PULSE 85; TEMP 36.4; O2SAT 94
--- NOTE | 2022-01-11 08:45 | PDOC.MHCN ---
Date of service: 01/10/22 Time of Service: 13:45 Suicide Severity Rate CSSRS Have you wished you were or wished you could go to sleep and not wake up?: No Have you actually had any thoughts of killing yourself?: No CSSRS3 Have you ever done anything, started to do anything or prepared to do anything to end your life?: No Screening Score Total Score: 0 Screening: Negative Mental Health Emergency Note Release [facility] release signed:: No Reason for Visit [facility] sent SA to [facility] after he was displaying unsafe behaviors. In the last 2 weeks has the pt presented for ES prior to today?: Unknown Client Information Client is: New ([facility] is inactive.) Well Housed: Yes Non Suicidal Self Injury Current: No History: No Safety Risk/Harm to Self or Others Current Ideation to Harm Self or Others: No Risk: Does risk to harm exist?: No Risk: N/A Duty to warn indicated: No Asssessment/Mental Status Appearance: Disheveled Attitude: Demanding Behavior: Unremarkable Speech: Loud Affect: Cogruent with mood Mood: Stressed and Irritable Thought process: Racing and Flight of ideas Hallucinations: No evidence Delusions: No evidence Attention: Unremarkable Perception: Not impaired Orientation: Fully orientated Memory: Intact Insight: Fair Judgement: Fair Neurovegetative Symptoms Sleep: No change Appetitie: No change Interests: No change Energy: No change Libido: Not applicable Substance Use: Do you use nicotine?: No Have you used substances in the last 7 days?: No Additional Issues: Assaultive/Threatening Behavior: Yes Medical Concerns: No Client engaged in active self harm w/weapon: No Threatening to run away: No Child reported abuse/neglect: No Voluntarily presenting for services: Yes Domestic violence is a concern: No Extreme Psychosis or extreme behavior is present: No Impression SA presents to the hospital via ambulance after he was displaying unsafe behaviors at [facility]. This client presents disheveled and irritable. SA was calm and cooperative at the beginning of this assessment, but when specific mental health questions were brought this client became escalated and irritable. SA reports he would smash the tablet this policy writer sales is on and reports threatening to break the windows with rocks at [facility] in addition to knocking down the doors. Client reports he would never intentionally hurt someone else or himself. SA did state when people do not do what he wants he Shows them who is boss Client could not ellaborate on what this statement meant. Client does not have any access to means. Client reports he likes working and there is no more work for him at [facility] which upsets him. Client reports this clinician is 'pissing him off' and he no longer wanted to talk about mental health. Plan/Disposition Recommended Disposition: Other (Splicing Machine Operator Automatic Sebastian is making follow up phone calls to [facility] with [facility], legal guardian, and [facility].). Plan: Splicing Machine Operator Automatic Sandie Cortes will make follow up phone calls per 's request so we can all best understand this client's situation. If client is to be discharged or leaves AMA please let [facility] know so we can attempt to support. Client was not aware of next steps after this clinician told him she needed to speak to the doctor. Person reported agreement to plan: No Reports/communication Outcome discussed with: ED/Personnel and Other (Splicing Machine Operator Automatic Sebastian)
[2022-01-11 21:20] VITALS: BP 149/86; PULSE 74; O2SAT 94
[2022-01-11] MEDS: Citalopram 20 MG TAB PO (21:21)
[2022-01-11] MEDS: traZODone 100 MG TAB 150 MG PO (21:21)
--- NOTE | 2022-01-11 23:15 | W.EDPROG ---
Date of service: 01/11/22 Time of Service: 23:15 Medical Decision Making Received signout on the patient from Dr. Sánchez when I took over the afternoon shift on January 11 approximately 3 PM. Patient remained stable and appropriate with staff throughout the evening shift. Patient was signed out to Dr. Vela for the slot shift supervisor pending further disposition. Sign Out Sign Out Data: Sign Out Comment: History of traumatic brain injury. Reported combative behavior at [facility] where patient resides. Sent here for medical clearance per [facility] with potential plan for transfer to [place]. Patient is medically cleared. Follow-up with [facility] human services regarding plan. Last updated by Oneida Gimenez DO at 01/10/22 20:34 Sign Out Comment: hx of tbi, came in after being combative at residence, cleared by mental health but would not be accepted back at residence, will need CM eval Last updated by Norbert Amezquita MD at 01/10/22 22:48 Sign Out Comment: Stable throughout the shift. No interventions needed. Case management is still working on a way to transition the patient to a care facility. Last updated by Jeromy Sánchez DO at 01/11/22 15:32 Sign Out Comment: Stable thru evening shift, awaits placement Last updated by Oskar Moulton MD at 01/11/22 22:20 Discharge Plan Disposition Patient Disposition: STILL A PATIENT Condition: Stable Discharge Details Clinical Impression: Combative behavior, History of traumatic brain injury Primary Care Provider: Andrey Wheeler ED Provider: Estuardo Vela Home Meds and New Rx's Prescriptions: No Action albuterol sulfate [Proventil HFA] 90 mcg/actuation HFA aerosol inhaler 2 puff inhalation Q6H PRN (Reason: shortness of breath or wheezing) Qty: 8.5 0RF diphenhydramine HCl [Benadryl] 25 MG capsule 25 - 50 mg PO Q6H PRN citalopram 10 MG tablet 20 mg PO HS fluocinonide 60 ML solution 1 applic Topical BID PRN loperamide 2 MG capsule 2 - 4 mg PO DIRECTED PRN metoprolol tartrate 25 MG tablet 50 mg PO BID multivitamin 1 EACH capsule 1 tab PO DAILY esomeprazole magnesium [Nexium] 40 MG capsule,delayed release(DR/EC) 40 mg PO HS risperidone 3 MG tablet 12 mg PO BID simethicone 125 MG capsule 125 mg PO HS PRN trazodone 100 MG tablet 150 mg PO HS (DME) cane 1 EACH device 1 ea Miscellaneous DIRECTED Qty: 1 0RF Rx Instructions: Use cane for ambulation for gait stability and safety acetaminophen 500 MG tablet 500 - 1,000 mg PO Q6H PRNQty: 20 0RF ropinirole 1 mg Tablet 1 mg PO .QHS magnesium hydroxide [Milk of Magnesia] 30 ML suspension 5 - 15 ml PO QID PRN (Reason: stomach upset) Qty: 0 0RF Rx Instructions: Do not take this at the same time is your doxycycline as it will interact with the medication. tramadol 50 mg tablet 50 mg PO TID PRN (Reason: pain) Qty: 10 0RF sennosides 8.6 mg Tablet 8.6 mg PO PRN PRN lisinopril-hydrochlorothiazide 20-12.5 mg tablet 2 tab PO DAILY pantoprazole 40 mg tablet,delayed release (DR/EC) 40 mg PO DAILY ferrous sulfate 325 mg (65 mg iron) tablet 325 mg PO DAILY celecoxib 100 mg capsule 200 mg PO DAILY
--- NOTE | 2022-01-12 07:19 | ED.PROG_ITS ---
Date of service: 01/12/22 Time of Service: 07:19 Medical Decision Making Patient was signed out to me with plan for determination of placement, potential for [facility]. Patient remained stable overnight. Sign Out Sign Out Data: Sign Out Comment: History of traumatic brain injury. Reported combative behavior at [facility] today where patient resides. Sent here for medical clearance per [facility] with potential plan for transfer to [place]. Patient is medically cleared. Follow-up with [facility] human services regarding plan. Last updated by Oneida Gimenez DO at 01/10/22 20:34 Sign Out Comment: hx of tbi, came in after being combative at residence, cleared by mental health but would not be accepted back at residence, will need CM eval Last updated by Norbert Amezquita MD at 01/10/22 22:48 Sign Out Comment: Stable throughout the shift. No interventions needed. Case management is still working on a way to transition the patient to a care facility. Last updated by Jeromy Sánchez DO at 01/11/22 15:32 Sign Out Comment: Stable thru evening shift, awaits placement Last updated by Oskar Moulton MD at 01/11/22 22:20 Discharge Plan Disposition Patient Disposition: STILL A PATIENT Condition: Stable Discharge Details Clinical Impression: Combative behavior, History of traumatic brain injury Primary Care Provider: Andrey Wheeler ED Provider: Estuardo Vela Home Meds and New Rx's Prescriptions: No Action albuterol sulfate [Proventil HFA] 90 mcg/actuation HFA aerosol inhaler 2 puff inhalation Q6H PRN (Reason: shortness of breath or wheezing) Qty: 8.5 0RF diphenhydramine HCl [Benadryl] 25 MG capsule 25 - 50 mg PO Q6H PRN citalopram 10 MG tablet 20 mg PO HS fluocinonide 60 ML solution 1 applic Topical BID PRN loperamide 2 MG capsule 2 - 4 mg PO DIRECTED PRN metoprolol tartrate 25 MG tablet 50 mg PO BID multivitamin 1 EACH capsule 1 tab PO DAILY esomeprazole magnesium [Nexium] 40 MG capsule,delayed release(DR/EC) 40 mg PO HS risperidone 3 MG tablet 12 mg PO BID simethicone 125 MG capsule 125 mg PO HS PRN trazodone 100 MG tablet 150 mg PO HS (DME) cane 1 EACH device 1 ea Miscellaneous DIRECTED Qty: 1 0RF Rx Instructions: Use cane for ambulation for gait stability and safety acetaminophen 500 MG tablet 500 - 1,000 mg PO Q6H PRNQty: 20 0RF ropinirole 1 mg Tablet 1 mg PO .QHS magnesium hydroxide [Milk of Magnesia] 30 ML suspension 5 - 15 ml PO QID PRN (Reason: stomach upset) Qty: 0 0RF Rx Instructions: Do not take this at the same time is your doxycycline as it will interact with the medication. tramadol 50 mg tablet 50 mg PO TID PRN (Reason: pain) Qty: 10 0RF sennosides 8.6 mg Tablet 8.6 mg PO PRN PRN lisinopril-hydrochlorothiazide 20-12.5 mg tablet 2 tab PO DAILY pantoprazole 40 mg tablet,delayed release (DR/EC) 40 mg PO DAILY ferrous sulfate 325 mg (65 mg iron) tablet 325 mg PO DAILY celecoxib 100 mg capsule 200 mg PO DAILY
[2022-01-12] MEDS: Metoprolol 50 MG TAB PO (08:02)
[2022-01-12] MEDS: Esomeprazole 40 MG CAPCR PO (08:02)
[2022-01-12] MEDS: Celecoxib 200 MG CAP PO (08:02)
[2022-01-12] MEDS: Ferrous Sulfate 325 MG TAB PO (08:02)
--- NOTE | 2022-01-12 13:24 | NUR.NOTE ---
Nursing Note: Guardian: Lux ([facility]) Katelynn (cell) [phone] (work) [phone]: [address] Wheeler [phone] Optomologist: Dr. Wharton [phone] Pharmacy: [facility] [phone]
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
--- NOTE | 2022-01-12 17:36 | W.EDPROG ---
Date of service: 01/12/22 Time of Service: 08:00 Medical Decision Making 0800 -- Case endorsed to continue to monitor while awaiting placement. 1200 -- Per discussion with Radha with care management, [facility] has declined acceptance. [facility] has refused to take patient back. Per discussion of care management with department of mental health, patient will need additional insurance coverage for placement which will potentially take several months. Patient will likely remain in the hospital until insurance is active. We will plan to admit patient to the floor once bed available. 1700 --Case discussed with nursing documentation supervisor with plan for transfer to the floor once bed available. We will continue to monitor bed availability. Dr. Sánchez documentation: Patient has remained stable. We will admit to the floor for continued observation. Discussed the case with Dr. Taylor. I have extensively reviewed the treatment plan with the patient. I have addressed all patient concerns at this time. I have also discussed the plan with the admitting physician and they agree with the current assessment and plan and have agreed to assume responsibility for the patient. All parties demonstrate verbal understanding and agreement with our assessment and plan at this time. The documentation in this chart was dictated using [employer] dictation software. Please excuse any dictation errors. Medical Records Medical records reviewed: Yes I reviewed the patient's medical records. Sign Out Sign Out Data: Sign Out Comment: History of traumatic brain injury. Reported combative behavior at [facility] today where patient resides. Sent here for medical clearance per [facility] with potential plan for transfer to [place]. Patient is medically cleared. Follow-up with [facility] human services regarding plan. Last updated by Oneida Gimenez DO at 01/10/22 20:34 Sign Out Comment: hx of tbi, came in after being combative at residence, cleared by mental health but would not be accepted back at residence, will need CM eval Last updated by oNrbert Amezquita MD at 01/10/22 22:48 Sign Out Comment: Stable throughout the shift. No interventions needed. Case management is still working on a way to transition the patient to a care facility. Last updated by Jeromy Sánchez DO at 01/11/22 15:32 Sign Out Comment: Stable thru evening shift, awaits placement Last updated by Oskar Moulton MD at 01/11/22 22:20 Sign Out Comment: stable overnight, awaiting placement Last updated by Estuardo Vela MD at 01/12/22 07:26 Sign Out Comment: Medically cleared. No issues today. Plan will be for admission to the floor once bed available as placement could take several weeks to months pending insurance. Last updated by Oneida Gimenez DO at 01/12/22 19:50 Sign Out Comment: Awaits disposition, no issues overnight Last updated by Oskar Moulton MD at 01/13/22 07:22 Sign Out Comment: awaiting placement. stable. Last updated by Estuardo Vela MD at 01/13/22 16:34 Discharge Plan Disposition Patient Disposition: [facility] INPATIENT Condition: Stable Discharge Details Clinical Impression: Combative behavior, History of traumatic brain injury Primary Care Provider: Andrey Wheeler ED Provider: Jeromy Sánchez Home Meds and New Rx's Prescriptions: No Action albuterol sulfate [Proventil HFA] 90 mcg/actuation HFA aerosol inhaler 2 puff inhalation Q6H PRN (Reason: shortness of breath or wheezing) Qty: 8.5 0RF diphenhydramine HCl [Benadryl] 25 MG capsule 25 - 50 mg PO Q6H PRN citalopram 10 MG tablet 20 mg PO HS fluocinonide 60 ML solution 1 applic Topical BID PRN loperamide 2 MG capsule 2 - 4 mg PO DIRECTED PRN metoprolol tartrate 25 MG tablet 50 mg PO BID multivitamin 1 EACH capsule 1 tab PO DAILY esomeprazole magnesium [Nexium] 40 MG capsule,delayed release(DR/EC) 40 mg PO HS risperidone 3 MG tablet 12 mg PO BID simethicone 125 MG capsule 125 mg PO HS PRN trazodone 100 MG tablet 150 mg PO HS (DME) cane 1 EACH device 1 ea Miscellaneous DIRECTED Qty: 1 0RF Rx Instructions: Use cane for ambulation for gait stability and safety acetaminophen 500 MG tablet 500 - 1,000 mg PO Q6H PRNQty: 20 0RF ropinirole 1 mg Tablet 1 mg PO .QHS magnesium hydroxide [Milk of Magnesia] 30 ML suspension 5 - 15 ml PO QID PRN (Reason: stomach upset) Qty: 0 0RF Rx Instructions: Do not take this at the same time is your doxycycline as it will interact with the medication. tramadol 50 mg tablet 50 mg PO TID PRN (Reason: pain) Qty: 10 0RF sennosides 8.6 mg Tablet 8.6 mg PO PRN PRN lisinopril-hydrochlorothiazide 20-12.5 mg tablet 2 tab PO DAILY pantoprazole 40 mg tablet,delayed release (DR/EC) 40 mg PO DAILY ferrous sulfate 325 mg (65 mg iron) tablet 325 mg PO DAILY celecoxib 100 mg capsule 200 mg PO DAILY
[2022-01-12] MEDS: traZODone 100 MG TAB 150 MG PO (22:29)
[2022-01-12] MEDS: Citalopram 20 MG TAB PO (22:29)
[2022-01-13] MEDS: Celecoxib 200 MG CAP PO (08:44)
[2022-01-13] MEDS: Ferrous Sulfate 325 MG TAB PO (08:44)
[2022-01-13] MEDS: Metoprolol 50 MG TAB PO (08:45)
[2022-01-13] MEDS: Esomeprazole 40 MG CAPCR PO (08:45)
--- NOTE | 2022-01-13 16:32 | ED.PROG_ITS ---
Date of service: 01/13/22 Time of Service: 16:32 Medical Decision Making Patient is stable. Cooperative. He was provided shower today and is safe. He is enjoying watching country westerns. He continues to wait for safe discharge plan. Sign Out Sign Out Data: Sign Out Comment: History of traumatic brain injury. Reported combative behavior at [facility] today where patient resides. Sent here for medical clear ance per [facility] with potential plan for transfer to [place]. Patient is medically cleared. Follow-up with [facility] human services regarding plan. Last updated by Oneida Gimenez DO at 01/10/22 20:34 Sign Out Comment: hx of tbi, came in after being combative at residence, cleared by mental health but would not be accepted back at residence, will need CM eval Last updated by Norbert Amezquita MD at 01/10/22 22:48 Sign Out Comment: Stable throughout the shift. No interventions needed. Case management is still working on a way to transition the patient to a care facility. Last updated by Jeromy Sánchez DO at 01/11/22 15:32 Sign Out Comment: Stable thru evening shift, awaits placement Last updated by Oskar Moulton MD at 01/11/22 22:20 Sign Out Comment: stable overnight, awaiting placement Last updated by Estuardo Vela MD at 01/12/22 07:26 Sign Out Comment: Medically cleared. No issues today. Plan will be for admission to the floor once bed available as placement could take several weeks to months pending insurance. Last updated by Oneida Gimenez DO at 01/12/22 19:50 Sign Out Comment: Awaits disposition, no issues overnight Last updated by Oskar Moulton MD at 01/13/22 07:22 Discharge Plan Disposition Patient Disposition: STILL A PATIENT Condition: Stable Discharge Details Clinical Impression: Combative behavior, History of traumatic brain injury Primary Care Provider: Andrey Wheeler ED Provider: Estuardo Vela Home Meds and New Rx's Prescriptions: No Action albuterol sulfate [Proventil HFA] 90 mcg/actuation HFA aerosol inhaler 2 puff inhalation Q6H PRN (Reason: shortness of breath or wheezing) Qty: 8.5 0RF diphenhydramine HCl [Benadryl] 25 MG capsule 25 - 50 mg PO Q6H PRN citalopram 10 MG tablet 20 mg PO HS fluocinonide 60 ML solution 1 applic Topical BID PRN loperamide 2 MG capsule 2 - 4 mg PO DIRECTED PRN metoprolol tartrate 25 MG tablet 50 mg PO BID multivitamin 1 EACH capsule 1 tab PO DAILY esomeprazole magnesium [Nexium] 40 MG capsule,delayed release(DR/EC) 40 mg PO HS risperidone 3 MG tablet 12 mg PO BID simethicone 125 MG capsule 125 mg PO HS PRN trazodone 100 MG tablet 150 mg PO HS (DME) cane 1 EACH device 1 ea Miscellaneous DIRECTED Qty: 1 0RF Rx Instructions: Use cane for ambulation for gait stability and safety acetaminophen 500 MG tablet 500 - 1,000 mg PO Q6H PRNQty: 20 0RF ropinirole 1 mg Tablet 1 mg PO .QHS magnesium hydroxide [Milk of Magnesia] 30 ML suspension 5 - 15 ml PO QID PRN (Reason: stomach upset) Qty: 0 0RF Rx Instructions: Do not take this at the same time is your doxycycline as it will interact with the medication. tramadol 50 mg tablet 50 mg PO TID PRN (Reason: pain) Qty: 10 0RF sennosides 8.6 mg Tablet 8.6 mg PO PRN PRN lisinopril-hydrochlorothiazide 20-12.5 mg tablet 2 tab PO DAILY pantoprazole 40 mg tablet,delayed release (DR/EC) 40 mg PO DAILY ferrous sulfate 325 mg (65 mg iron) tablet 325 mg PO DAILY celecoxib 100 mg capsule 200 mg PO DAILY
[2022-01-13] MEDS: Citalopram 20 MG TAB PO (20:44)
[2022-01-13] MEDS: traZODone 100 MG TAB 150 MG PO (20:44)
[2022-01-13 20:46] VITALS: BP 148/83; PULSE 64; RESP 16; TEMP 36.1; O2SAT 98
[2022-01-13 21:44] VITALS: BP 127/73; PULSE 55; RESP 14; TEMP 36.5; O2SAT 95
[2022-01-13] MEDS: rOPINIRole 0.5 MG TAB 1 MG PO (22:23)
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
[2022-01-14] MEDS: hydroCHLOROthiazide 25 MG TAB PO (08:10)
[2022-01-14] MEDS: Esomeprazole 40 MG CAPCR PO (08:10)
[2022-01-14] MEDS: Lisinopril 20 MG TAB 40 MG PO (08:10)
[2022-01-14] MEDS: Celecoxib 200 MG CAP PO (08:10)
[2022-01-14] MEDS: Ferrous Sulfate 325 MG TAB PO (08:10)
[2022-01-14] MEDS: Metoprolol 50 MG TAB PO ×2 (08:10→21:10)
[2022-01-14] MEDS: risperiDONE 1 MG TAB 4 MG PO ×3 (08:11→21:11)
[2022-01-14 08:35] VITALS: BP 159/75; PULSE 64; RESP 16; TEMP 35.9; O2SAT 99
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
--- NOTE | 2022-01-14 14:25 | CM.SWINGPC ---
- If Service Date Differs Date of service: 01/14/22 Time of Service: 14:25 Swingbed Plan of Care Plan of care: SWING BED PROGRAM ACTIVITIES/DISCHARGE PLAN OF CARE ACTIVITIES PLAN Date: 01/14/22 Identified Need: Life Enrichment during extended hospitalization Intervention/Plan: Activity cart, music therapy, outside time, visitation. Initials: [facility] DISCHARGE PLAN Date: 01/14/22 Identified Need: Disposition Support as vulnerable, detention institutionalized adult was left at [facility] ED with no plan and no where to go. Intervention/Plan: Care Coordination support and collaboration with current micro/mezzo/macro team to include guardian, local, interdepartmental, admin and state level teams to determine disposition plan and support discharge considerations. Initials: [facility]
[2022-01-14 15:50] VITALS: BP 156/67; PULSE 60; RESP 18; TEMP 36; O2SAT 98
[2022-01-14] MEDS: traZODone 100 MG TAB 150 MG PO (21:09)
[2022-01-14] MEDS: Citalopram 20 MG TAB PO (21:10)
[2022-01-14] MEDS: rOPINIRole 0.5 MG TAB 1 MG PO (21:11)
[2022-01-14 21:15] VITALS: PULSE 78
[2022-01-15 07:56] VITALS: BP 149/79; PULSE 71; RESP 18; TEMP 36.4; O2SAT 97
[2022-01-15] MEDS: hydroCHLOROthiazide 25 MG TAB PO (07:56)
[2022-01-15] MEDS: Celecoxib 200 MG CAP PO (07:56)
[2022-01-15] MEDS: Metoprolol 50 MG TAB PO ×2 (07:57→21:00)
[2022-01-15] MEDS: Esomeprazole 40 MG CAPCR PO (07:57)
[2022-01-15] MEDS: risperiDONE 1 MG TAB 4 MG PO ×3 (07:57→21:00)
[2022-01-15] MEDS: Lisinopril 20 MG TAB 40 MG PO (07:57)
[2022-01-15] MEDS: Ferrous Sulfate 325 MG TAB PO (07:57)
[2022-01-15] MEDS: Acetaminophen 325 MG TAB 650 MG PO (11:53)
[2022-01-15 15:42] VITALS: BP 145/76; PULSE 68; RESP 19; TEMP 36.4; O2SAT 100
[2022-01-15 20:56] VITALS: BP 152/78; PULSE 68; RESP 18; TEMP 36.8; O2SAT 96
[2022-01-15] MEDS: traZODone 100 MG TAB 150 MG PO (20:59)
[2022-01-15] MEDS: rOPINIRole 0.5 MG TAB 1 MG PO (21:00)
[2022-01-15] MEDS: Citalopram 20 MG TAB PO (21:00)
[2022-01-16] MEDS: hydroCHLOROthiazide 25 MG TAB PO (08:04)
[2022-01-16] MEDS: Metoprolol 50 MG TAB PO ×2 (08:04→19:35)
[2022-01-16] MEDS: Lisinopril 20 MG TAB 40 MG PO (08:04)
[2022-01-16] MEDS: Celecoxib 200 MG CAP PO (08:04)
[2022-01-16] MEDS: Ferrous Sulfate 325 MG TAB PO (08:05)
[2022-01-16] MEDS: risperiDONE 1 MG TAB 4 MG PO ×3 (08:05→19:35)
[2022-01-16] MEDS: Esomeprazole 40 MG CAPCR PO (08:05)
[2022-01-16 08:08] VITALS: BP 129/72; PULSE 74; RESP 18; TEMP 36.8; O2SAT 96
[2022-01-16] MEDS: Acetaminophen 325 MG TAB 650 MG PO ×2 (13:30→21:31)
[2022-01-16 19:31] VITALS: BP 147/77; PULSE 73; RESP 19; TEMP 36.6; O2SAT 96
[2022-01-16] MEDS: Citalopram 20 MG TAB PO (19:35)
[2022-01-16] MEDS: traZODone 100 MG TAB 150 MG PO (19:35)
[2022-01-16] MEDS: rOPINIRole 0.5 MG TAB 1 MG PO (19:35)
--- NOTE | 2022-01-17 | DI.CT_ITS ---
Exam(s) CT HEAD WO EXAM: CT HEAD WO CLINICAL HISTORY: altered mental status, h/o TBI. TECHNIQUE: Imaging Protocol: Axial computed tomography images with coronal and sagittal reformatted images were created and reviewed COMPARISON: CR XR RIBS RT W PA LAT CHEST from 12/16/2021 FINDINGS: There are no skull fractures nor fluid in the visualized paranasal sinuses. There is no evidence of intracranial hemorrhage, intra or extra-axial. Ventricular size is upper nor mal. Size of the ventricles is commensurate with the size of the overlying cortical sulci. Mild asy mmetry in the CSF space left-sided posterior fossa is noted but this is probably related to the head tilting. There is mild periventricular hypodensity consistent with chronic small vessel disease. No evidence of acute territorial infarct. IMPRESSION: No acute intracranial findings on this noninfused CT scan of the brain. RADIATION DOSE DELIVERED: 864.13mGy.cm Total DLP DATA REPOSITORY: All CT scans at this facility are submitted to the National Radiology Data Registry (NRDR) Dose Index Registry (DIR) with the [employer] (ACR). RADIATION OPTIMIZATION: All CT scans at this facility use at least one of these dose optimization te chniques: automated exposure control; mA and/or kV adjustment per patient size (includes targeted exa ms where dose is matched to clinical indication); or iterative reconstruction.
[2022-01-17] MEDS: Acetaminophen 325 MG TAB 650 MG PO ×2 (04:54→13:49)
[2022-01-17] MEDS: risperiDONE 1 MG TAB 4 MG PO ×3 (07:39→20:53)
[2022-01-17] MEDS: Esomeprazole 40 MG CAPCR PO (07:40)
[2022-01-17] MEDS: Metoprolol 50 MG TAB PO ×2 (07:40→20:53)
[2022-01-17] MEDS: Ferrous Sulfate 325 MG TAB PO (07:41)
[2022-01-17] MEDS: hydroCHLOROthiazide 25 MG TAB PO (07:41)
[2022-01-17] MEDS: Celecoxib 200 MG CAP PO (07:41)
[2022-01-17] MEDS: Lisinopril 20 MG TAB 40 MG PO (07:55)
[2022-01-17 08:04] VITALS: BP 127/74; PULSE 62; RESP 16; TEMP 36.2; O2SAT 97
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
[2022-01-17 14:04] LABS: Anion Gap 9.8 mmol/L (3-11); BUN 10 mg/dL (7-18); CO2 26.2 mmol/L (21.0-32.0); CREATININE 0.9 mg/dL (0.70-1.30); Calcium 8.7 mg/dL (8.5-10.1); Chloride 91 mmol/L (98-107); Estimated GFR 94.78 (mL/min/1.73m2); Glucose 113 mg/dL (74-106); Sodium 127 mmol/L (136-145); TSH (W/Ref FT4) 0.57 uIU/mL (0.36-3.74); Vitamin B12 1381 pg/mL (193-986)
--- NOTE | 2022-01-17 14:28 | PDOC.CMPRO ---
- If Service Date Differs Date of service: 01/17/22 Time of Service: 14:29 Care Management Progress Note CM attended a meeting with Zan's community care team today, 01/17/22. Those in attendance were Queta Coyne (RN, [facility], [facility]); Queta Villalobos ([place] [facility] Director); Jose Francisco Pace (SA's Guardian); Daiana Soria (TAINA, [facility]- former TBI program); Katerine Pichardo (RN, TBI program); and Georgina (GUILLERMO). In this meeting, Zan's care plan was discussed. CM was asked to provide an update on his medical care. CM explained that Zan was medically cleared in the ED, and was placed on SWB2 status upon his admission to the med/surge floor, which is intermediate care.
[2022-01-17 20:50] VITALS: BP 121/63; PULSE 68; RESP 18; TEMP 36.5; O2SAT 98
[2022-01-17] MEDS: rOPINIRole 0.5 MG TAB 1 MG PO (20:53)
[2022-01-17] MEDS: Citalopram 20 MG TAB PO (20:53)
[2022-01-17] MEDS: traZODone 100 MG TAB 150 MG PO (20:55)
--- NOTE | 2022-01-18 | DI.MRI_ITS ---
Exam(s) MR BRAIN WO EXAM: MR BRAIN WO CLINICAL HISTORY: h/o TBI, ?dementia TECHNIQUE: Multiplanar multisequence MRI of the brain was performed. COMPARISON: CT CT HEAD WO from 01/17/2022 FINDINGS: CEREBRAL PARENCHYMA: There is no evidence of intracranial hemorrhage, mass effect, or shift of midline structures. There are no extra-axial fluid collections. Ventricles are not enlarged or shifted. There is no significant focal signal abnormality in the cerebellar hemispheres nor within the rudy, m idbrain, and thalami. There is mild scattered bilateral signal abnormality in the periventricular white matter, not associa courtney with hemorrhage or surrounding edema nor restricted diffusion on DWI SWI: No evidence of microhemorrhages. PITUITARY GLAND: No obvious mass nor parasellar abnormality. No obvious abnormality in the cavernous sinuses. FLOW VOIDS: The expected flow void are noted. No evidence of obvious aneurysm nor obvious vascular ma lformation. PARANASAL SINUSES: Small post inflammatory retention cysts seen in the medial wall of the right maxil nataliya sinus. No associated fluid level. Mild mucosal thickening also noted in the left maxillary sin us. Other sinuses are clear as are the mastoid air cells. ORBITS: No obvious findings. IMPRESSION: Mild white matter findings as described above. No evidence of acute territorial infarction. No evid ence of intracranial hemorrhage. Amount of involutional change is consistent with this patient's age . DATA REPOSITORY:
[2022-01-18] MEDS: risperiDONE 1 MG TAB 4 MG PO ×3 (08:04→19:27)
[2022-01-18] MEDS: hydroCHLOROthiazide 25 MG TAB PO (08:05)
[2022-01-18] MEDS: Metoprolol 50 MG TAB PO ×2 (08:05→19:27)
[2022-01-18] MEDS: Esomeprazole 40 MG CAPCR PO (08:05)
[2022-01-18] MEDS: Ferrous Sulfate 325 MG TAB PO (08:05)
[2022-01-18] MEDS: Lisinopril 20 MG TAB 40 MG PO (08:05)
[2022-01-18] MEDS: Celecoxib 200 MG CAP PO (08:05)
[2022-01-18 08:09] VITALS: BP 111/67; PULSE 65; RESP 18; TEMP 36.3; O2SAT 97
[2022-01-18 13:28] LABS: Anion Gap 9.1 mmol/L (3-11); BUN 14 mg/dL (7-18); CO2 24.9 mmol/L (21.0-32.0); CREATININE 0.9 mg/dL (0.70-1.30); Calcium 8.7 mg/dL (8.5-10.1); Chloride 94 mmol/L (98-107); Estimated GFR 94.78 (mL/min/1.73m2); Glucose 89 mg/dL (74-106); Potassium 3.8 mmol/L (3.5-5.1); Sodium 128 mmol/L (136-145)
[2022-01-18] MEDS: Acetaminophen 325 MG TAB 650 MG PO (14:36)
[2022-01-18] MEDS: Citalopram 20 MG TAB PO (22:25)
[2022-01-18] MEDS: rOPINIRole 0.5 MG TAB 1 MG PO (22:25)
[2022-01-18] MEDS: traZODone 100 MG TAB 150 MG PO (22:25)
[2022-01-19] MEDS: Acetaminophen 325 MG TAB 650 MG PO ×3 (00:22→21:14)
[2022-01-19] MEDS: Esomeprazole 40 MG CAPCR PO (07:30)
[2022-01-19 07:35] VITALS: BP 127/77; PULSE 69; RESP 18; TEMP 36.6; O2SAT 94
[2022-01-19] MEDS: risperiDONE 1 MG TAB 4 MG PO ×3 (09:34→19:32)
[2022-01-19] MEDS: Celecoxib 200 MG CAP PO (09:34)
[2022-01-19] MEDS: Lisinopril 20 MG TAB 40 MG PO (09:34)
[2022-01-19] MEDS: Ferrous Sulfate 325 MG TAB PO (09:35)
[2022-01-19] MEDS: Metoprolol 50 MG TAB PO ×2 (09:35→19:33)
[2022-01-19 12:40] LABS: Anion Gap 7.2 mmol/L (3-11); BUN 18 mg/dL (7-18); CO2 25.8 mmol/L (21.0-32.0); CREATININE 0.9 mg/dL (0.70-1.30); Calcium 8.6 mg/dL (8.5-10.1); Chloride 96 mmol/L (98-107); Estimated GFR 94.78 (mL/min/1.73m2); Glucose 94 mg/dL (74-106); Potassium 4.3 mmol/L (3.5-5.1); Sodium 129 mmol/L (136-145)
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
[2022-01-19] MEDS: Ibuprofen 600 MG TAB PO (19:01)
[2022-01-19 19:34] VITALS: BP 118/59; PULSE 67; RESP 16; TEMP 36.5; O2SAT 95
[2022-01-19] MEDS: Citalopram 20 MG TAB PO (21:14)
[2022-01-19] MEDS: traZODone 100 MG TAB 150 MG PO (21:15)
[2022-01-19] MEDS: rOPINIRole 0.5 MG TAB 1 MG PO (21:15)
[2022-01-20 06:57] LABS: Anion Gap 8.7 mmol/L (3-11); BUN 18 mg/dL (7-18); CO2 23.3 mmol/L (21.0-32.0); CREATININE 0.8 mg/dL (0.70-1.30); Calcium 8.4 mg/dL (8.5-10.1); Chloride 98 mmol/L (98-107); Estimated GFR 98.21 (mL/min/1.73m2); Glucose 128 mg/dL (74-106); Potassium 4.4 mmol/L (3.5-5.1); Sodium 130 mmol/L (136-145)
[2022-01-20 07:29] VITALS: BP 143/81; PULSE 65; RESP 18; TEMP 37; O2SAT 95
[2022-01-20] MEDS: Celecoxib 200 MG CAP PO (07:41)
[2022-01-20] MEDS: risperiDONE 1 MG TAB 4 MG PO ×3 (07:41→19:47)
[2022-01-20] MEDS: Esomeprazole 40 MG CAPCR PO (07:41)
[2022-01-20] MEDS: Ferrous Sulfate 325 MG TAB PO (07:41)
[2022-01-20] MEDS: Metoprolol 50 MG TAB PO ×2 (07:42→19:47)
[2022-01-20 08:14] VITALS: O2SAT 95
[2022-01-20] MEDS: Acetaminophen 325 MG TAB 650 MG PO (19:45)
[2022-01-20] MEDS: Ibuprofen 600 MG TAB PO (19:48)
[2022-01-20 19:51] VITALS: BP 137/85; PULSE 67; RESP 16; TEMP 36.6; O2SAT 97
[2022-01-20] MEDS: traZODone 100 MG TAB 150 MG PO (21:45)
[2022-01-20] MEDS: rOPINIRole 0.5 MG TAB 1 MG PO (21:45)
[2022-01-20] MEDS: Citalopram 20 MG TAB PO (21:45)
[2022-01-21 07:34] VITALS: BP 118/72; PULSE 74; RESP 18; TEMP 36.5; O2SAT 96
[2022-01-21] MEDS: Metoprolol 50 MG TAB PO ×2 (07:59→19:16)
[2022-01-21] MEDS: Ferrous Sulfate 325 MG TAB PO (07:59)
[2022-01-21] MEDS: Celecoxib 200 MG CAP PO (07:59)
[2022-01-21] MEDS: risperiDONE 1 MG TAB 4 MG PO ×3 (08:00→19:15)
[2022-01-21] MEDS: Esomeprazole 40 MG CAPCR PO (08:00)
[2022-01-21] MEDS: Acetaminophen 325 MG TAB 650 MG PO (19:17)
[2022-01-21] MEDS: Ibuprofen 600 MG TAB PO (19:19)
[2022-01-21] MEDS: rOPINIRole 0.5 MG TAB 1 MG PO (20:52)
[2022-01-21] MEDS: Citalopram 20 MG TAB PO (20:52)
[2022-01-21] MEDS: traZODone 100 MG TAB 150 MG PO (20:53)
[2022-01-22 07:26] VITALS: BP 165/86; PULSE 78; RESP 18; TEMP 36.4; O2SAT 96
[2022-01-22] MEDS: Ferrous Sulfate 325 MG TAB PO (07:32)
[2022-01-22] MEDS: Celecoxib 200 MG CAP PO (07:32)
[2022-01-22] MEDS: Metoprolol 50 MG TAB PO ×2 (07:32→19:24)
[2022-01-22] MEDS: Esomeprazole 40 MG CAPCR PO (07:32)
[2022-01-22] MEDS: risperiDONE 1 MG TAB 4 MG PO ×3 (07:33→19:24)
[2022-01-22 19:19] VITALS: BP 150/82; PULSE 86; RESP 18; TEMP 36.4; O2SAT 96
[2022-01-22] MEDS: Citalopram 20 MG TAB PO (19:24)
[2022-01-22] MEDS: traZODone 100 MG TAB 150 MG PO (19:24)
[2022-01-22] MEDS: rOPINIRole 0.5 MG TAB 1 MG PO (19:24)
[2022-01-23] MEDS: risperiDONE 1 MG TAB 4 MG PO ×3 (07:47→19:09)
[2022-01-23] MEDS: Ferrous Sulfate 325 MG TAB PO (07:47)
[2022-01-23] MEDS: Celecoxib 200 MG CAP PO (07:47)
[2022-01-23] MEDS: Esomeprazole 40 MG CAPCR PO (07:47)
[2022-01-23 07:48] VITALS: BP 145/84; PULSE 77; RESP 18; TEMP 36.1; O2SAT 94
[2022-01-23] MEDS: Metoprolol 50 MG TAB PO ×2 (07:48→19:10)
[2022-01-23 19:08] VITALS: BP 142/76; PULSE 67; RESP 20; TEMP 36.7; O2SAT 96
[2022-01-23] MEDS: Citalopram 20 MG TAB PO (19:09)
[2022-01-23] MEDS: traZODone 100 MG TAB 150 MG PO (19:09)
[2022-01-23] MEDS: rOPINIRole 0.5 MG TAB 1 MG PO (19:10)
--- NOTE | 2022-01-24 06:25 | NUR.NOTE ---
Patient rang, this nurse answered the monique, he requested more water and apple sauce that he was already eating. I returned with his request and he started shouting at me and shove the overhead table towards screaming that he did not want apple sauce again and i should have known this. This nurse then told the patient that its not appropriate that he is shoving the table at me and next time he should ask for exactly what he wants. Patient replied in a raised voice that seeing that i don't know what he wants he wants me to leave his room.
[2022-01-24 08:07] VITALS: BP 159/77; PULSE 79; RESP 20; TEMP 36.4; O2SAT 96
[2022-01-24] MEDS: Esomeprazole 40 MG CAPCR PO (08:18)
[2022-01-24] MEDS: Celecoxib 200 MG CAP PO (08:18)
[2022-01-24] MEDS: risperiDONE 1 MG TAB 4 MG PO ×3 (08:18→19:53)
[2022-01-24] MEDS: Ferrous Sulfate 325 MG TAB PO (08:18)
[2022-01-24] MEDS: Metoprolol 50 MG TAB PO ×2 (08:18→19:53)
[2022-01-24 19:46] VITALS: BP 144/76; PULSE 77; RESP 20; TEMP 36.2; O2SAT 96
[2022-01-24] MEDS: traZODone 100 MG TAB 150 MG PO (22:40)
[2022-01-24] MEDS: rOPINIRole 0.5 MG TAB 1 MG PO (22:40)
[2022-01-24] MEDS: Citalopram 20 MG TAB PO (22:40)
[2022-01-25] MEDS: Esomeprazole 40 MG CAPCR PO (07:38)
[2022-01-25] MEDS: Celecoxib 200 MG CAP PO (07:38)
[2022-01-25] MEDS: risperiDONE 1 MG TAB 4 MG PO ×3 (07:38→19:30)
[2022-01-25] MEDS: Ferrous Sulfate 325 MG TAB PO (07:39)
[2022-01-25] MEDS: Metoprolol 50 MG TAB PO ×2 (07:39→19:30)
[2022-01-25 08:12] VITALS: BP 178/77; PULSE 67; RESP 20; TEMP 36.1; O2SAT 96
--- NOTE | 2022-01-25 19:04 | CMACTNOTE_ITS ---
- If Service Date Differs Date of service: 01/25/22 Time of Service: 19:04 Care Management Activity Note Zan has been enjoying walking around the halls and engaging with staff throughout the day. Per report, he has been emotion when stating that he would like to return to [facility] and identifies that he has had good behavior since being at [facility]. [facility] staff are inquiring as to why he cannot return to [facility]. CM attended a meeting today about the status of his placement. At the meeting this comic book writer advocated, once again, that Zan should be able to return to [facility]. Daiana Shaikh, [facility] Director, continues to state that she does not have the capacity to meet his needs. Kaetrine, TBI Waiver program member service representative, stated that funding can be allotted for [facility] to increase staff support, but [facility] is not willing to consider his return at this time. GUILLERMO received a call from [facility], who completed intake and will call back when the case is assigned to an advocate. GUILLERMO has received denials from several SNF's, as they cannot manage his behaviors. [facility] agencies have also been contacted by Daiana Shaikh and Katerine, with no agency considering him at this time. Once all in state resources are exhausted, out of state resources can be considered. Zan's discharge remains unclear. CM will continue to follow.
--- NOTE | 2022-01-25 19:04 | PDOC.CMACT ---
- If Service Date Differs Date of service: 01/25/22 Time of Service: 19:04 Care Management Activity Note Zan has been enjoying walking around the halls and engaging with staff throughout the day. Per report, he has been emotion when stating that he would like to return to [facility] ([facility]), and identifies that he has had good behavior since being at [facility]. [facility] staff are inquiring as to why he cannot return to [facility]. CM attended a meeting today about the status of his placement. At the meeting this comic book writer advocated, once again, that Zan should be able to return to [facility]. Daiana Shaikh, [facility] Director, continues to state that she does not have the capacity to meet his needs. Katerine, TBI Waiver program motor vehicle field representative, stated that funding can be allotted for [facility] to increase staff support, but [facility] is not willing to consider his return at this time. GUILLERMO received a call from [facility], who completed intake and will call back when the case is assigned to an advocate. GUILLERMO has received denials from several SNF's, as they cannot manage his behaviors. [facility] agencies have also been contacted by Daiana Shaikh and Katerine, with no agency considering him at this time. Once all in state resources are exhausted, out of state resources can be considered. Zan's discharge remains unclear. CM will continue to follow.
[2022-01-25 19:29] VITALS: BP 126/66; PULSE 64; RESP 18; O2SAT 95
[2022-01-25] MEDS: rOPINIRole 0.5 MG TAB 1 MG PO (21:33)
[2022-01-25] MEDS: Citalopram 20 MG TAB PO (21:33)
[2022-01-25] MEDS: traZODone 100 MG TAB 150 MG PO (21:33)
[2022-01-26] MEDS: Ferrous Sulfate 325 MG TAB PO (07:55)
[2022-01-26] MEDS: Celecoxib 200 MG CAP PO (07:55)
[2022-01-26] MEDS: Esomeprazole 40 MG CAPCR PO (07:55)
[2022-01-26] MEDS: Metoprolol 50 MG TAB PO ×2 (07:55→20:25)
[2022-01-26] MEDS: risperiDONE 1 MG TAB 4 MG PO ×3 (07:55→20:26)
[2022-01-26 08:45] VITALS: BP 136/77; PULSE 67; RESP 18; TEMP 36.2; O2SAT 97
[2022-01-26 20:29] VITALS: BP 127/70; PULSE 61; RESP 16; TEMP 36.4; O2SAT 95
[2022-01-26] MEDS: Citalopram 20 MG TAB PO (21:47)
[2022-01-26] MEDS: Acetaminophen 325 MG TAB 650 MG PO (21:47)
[2022-01-26] MEDS: traZODone 100 MG TAB 150 MG PO (21:48)
[2022-01-26] MEDS: rOPINIRole 0.5 MG TAB 1 MG PO (21:48)
[2022-01-27] MEDS: Metoprolol 50 MG TAB PO ×2 (07:51→20:04)
[2022-01-27] MEDS: Ferrous Sulfate 325 MG TAB PO (07:51)
[2022-01-27] MEDS: risperiDONE 1 MG TAB 4 MG PO ×3 (07:51→20:04)
[2022-01-27] MEDS: Esomeprazole 40 MG CAPCR PO (07:51)
[2022-01-27] MEDS: Celecoxib 200 MG CAP PO (07:52)
[2022-01-27 07:54] VITALS: BP 129/70; PULSE 71; RESP 18; TEMP 36.8; O2SAT 96
[2022-01-27] MEDS: Ibuprofen 600 MG TAB PO (09:19)
[2022-01-27] MEDS: Acetaminophen 325 MG TAB 650 MG PO (10:08)
--- NOTE | 2022-01-27 14:54 | CHAPLAIN ---
Zan was dressed in his own clothes and sitting in a chair in his room when I visited. He has been walking around the halls and interacting with staff. He came here from [facility], and according to Care Management notes, the [facility] staff have said he can not return there. Zan was pleasant and easily engaged in a conversation. He talked about hitchhiking to [place], where he said his brother lives. I will continue to visit.
[2022-01-27 20:03] VITALS: BP 138/62; PULSE 68; RESP 18; TEMP 36.1; O2SAT 97
[2022-01-27] MEDS: Citalopram 20 MG TAB PO (20:04)
[2022-01-27] MEDS: rOPINIRole 0.5 MG TAB 1 MG PO (20:05)
[2022-01-27] MEDS: traZODone 100 MG TAB 150 MG PO (20:05)
[2022-01-28 07:26] VITALS: BP 166/75; PULSE 57; RESP 24; TEMP 36.7; O2SAT 98
[2022-01-28] MEDS: Ferrous Sulfate 325 MG TAB PO (07:31)
[2022-01-28] MEDS: Metoprolol 50 MG TAB PO ×2 (07:31→21:02)
[2022-01-28] MEDS: Celecoxib 200 MG CAP PO (07:31)
[2022-01-28] MEDS: Esomeprazole 40 MG CAPCR PO (07:31)
[2022-01-28] MEDS: risperiDONE 1 MG TAB 4 MG PO ×3 (07:31→21:03)
[2022-01-28 21:01] VITALS: BP 131/68; PULSE 64; RESP 18; TEMP 36.8; O2SAT 96
[2022-01-28] MEDS: traZODone 100 MG TAB 150 MG PO (21:02)
[2022-01-28] MEDS: Citalopram 20 MG TAB PO (21:02)
[2022-01-28] MEDS: rOPINIRole 0.5 MG TAB 1 MG PO (21:02)
[2022-01-28] MEDS: Senna TAB 1 TAB PO (21:02)
[2022-01-29 07:35] VITALS: BP 143/77; PULSE 58; RESP 18; TEMP 36.5; O2SAT 96
[2022-01-29] MEDS: Celecoxib 200 MG CAP PO (07:44)
[2022-01-29] MEDS: Metoprolol 50 MG TAB PO ×2 (07:44→20:40)
[2022-01-29] MEDS: Ferrous Sulfate 325 MG TAB PO (07:45)
[2022-01-29] MEDS: risperiDONE 1 MG TAB 4 MG PO ×4 (07:45→20:42)
[2022-01-29] MEDS: Esomeprazole 40 MG CAPCR PO (07:45)
[2022-01-29] MEDS: rOPINIRole 0.5 MG TAB 1 MG PO (20:39)
[2022-01-29] MEDS: Citalopram 20 MG TAB PO (20:41)
[2022-01-29] MEDS: traZODone 100 MG TAB 150 MG PO (20:42)
[2022-01-30 07:58] VITALS: BP 116/71; PULSE 61; RESP 16; TEMP 36.5; O2SAT 95
[2022-01-30] MEDS: risperiDONE 1 MG TAB 4 MG PO ×3 (08:34→20:13)
[2022-01-30] MEDS: Esomeprazole 40 MG CAPCR PO (08:35)
[2022-01-30] MEDS: Celecoxib 200 MG CAP PO (08:35)
[2022-01-30] MEDS: Metoprolol 50 MG TAB PO ×2 (08:35→20:13)
[2022-01-30] MEDS: Ferrous Sulfate 325 MG TAB PO (08:35)
[2022-01-30] MEDS: traZODone 100 MG TAB 150 MG PO (20:12)
[2022-01-30] MEDS: rOPINIRole 0.5 MG TAB 1 MG PO (20:12)
[2022-01-30] MEDS: Citalopram 20 MG TAB PO (20:13)
[2022-01-31] MEDS: risperiDONE 1 MG TAB 4 MG PO ×3 (09:30→20:12)
[2022-01-31] MEDS: Metoprolol 50 MG TAB PO ×2 (09:30→20:12)
[2022-01-31] MEDS: Celecoxib 200 MG CAP PO (09:30)
[2022-01-31] MEDS: Esomeprazole 40 MG CAPCR PO (09:30)
[2022-01-31] MEDS: Ferrous Sulfate 325 MG TAB PO (09:30)
[2022-01-31 09:57] VITALS: BP 150/80; PULSE 67; RESP 16; TEMP 36.9; O2SAT 97
[2022-01-31] MEDS: rOPINIRole 0.5 MG TAB 1 MG PO (20:12)
[2022-01-31] MEDS: Citalopram 20 MG TAB PO (20:13)
[2022-01-31] MEDS: traZODone 100 MG TAB 150 MG PO (20:13)
[2022-02-01 07:40] VITALS: BP 124/74; PULSE 64; RESP 18; TEMP 35.9; O2SAT 96
[2022-02-01] MEDS: Esomeprazole 40 MG CAPCR PO (07:53)
[2022-02-01] MEDS: Metoprolol 50 MG TAB PO ×2 (07:53→20:30)
[2022-02-01] MEDS: risperiDONE 1 MG TAB 4 MG PO ×3 (07:53→20:29)
[2022-02-01] MEDS: Ferrous Sulfate 325 MG TAB PO (07:53)
[2022-02-01] MEDS: Celecoxib 200 MG CAP PO (07:54)
[2022-02-01] MEDS: rOPINIRole 0.5 MG TAB 1 MG PO (20:29)
[2022-02-01] MEDS: traZODone 100 MG TAB 150 MG PO (20:30)
[2022-02-01] MEDS: Citalopram 20 MG TAB PO (20:30)
[2022-02-02 07:55] VITALS: BP 155/76; PULSE 67; RESP 18; TEMP 36.7; O2SAT 96
[2022-02-02] MEDS: risperiDONE 1 MG TAB 4 MG PO ×3 (08:18→19:55)
[2022-02-02] MEDS: Ferrous Sulfate 325 MG TAB PO (09:24)
[2022-02-02] MEDS: Celecoxib 200 MG CAP PO (09:24)
[2022-02-02] MEDS: Metoprolol 50 MG TAB PO ×2 (09:24→19:56)
[2022-02-02] MEDS: Esomeprazole 40 MG CAPCR PO (09:24)
--- NOTE | 2022-02-02 16:13 | CMACTNOTE_ITS ---
- If Service Date Differs Date of service: 02/02/22 Time of Service: 16:13 Care Management Activity Note Zan continues to enjoy walking around the halls, greeting and interacting with staff appropriately on a daily basis. GUILLERMO requested that some clothes be brought by staff at [facility] earlier this week. Jasbir, [facility], brought them in, which Zan was very appreciative of. He was happy to see Jasbir, who he spent time with at [facility] regularly. CM met with Queta Shaikh [facility] and GERDA Montanez, today to discuss the progress on his discharge plan. CM reviewed that the out of state facilities have been called, and only one has responded. CM has been in communication with Jhony from [facility], who accepted the referral, although he stated that currently they do not have beds. On this meeting, Zan's daily activities were also discussed, as it has been suggested that taking him outside for walks may be beneficial for his mental health. Zan is appreciative of all that staff are doing to help him, but he has told multiple staff that he would like to return home or find a new home. Queta Shaikh stated that her staff may be able to accompany Zan on outings in the community during his stay at [facility]. CM reached out to Jose Francisco, Zan's guardian, to discuss the option of Zan going outside for walks, as well as outings with [facility] staff. CM connected with Magaly from [facility], a TBI facility in [place], and provided information as well as a referral to their program. Magaly reported that their facility is currently full, but they will consider his referral and if accepted, he would be placed on a wait list. The complex care team continues to search for appropriate housing for Zan, including facilities and shared living provider's homes. CM continues to support discharge planning considerations.
[2022-02-02 19:54] VITALS: BP 120/63; PULSE 61; RESP 18; TEMP 36.7; O2SAT 95
[2022-02-02] MEDS: Citalopram 20 MG TAB PO (19:55)
[2022-02-02] MEDS: traZODone 100 MG TAB 150 MG PO (19:56)
[2022-02-02] MEDS: rOPINIRole 0.5 MG TAB 1 MG PO (19:57)
[2022-02-03 07:32] VITALS: BP 138/75; PULSE 65; RESP 16; TEMP 36.6; O2SAT 94
[2022-02-03] MEDS: Metoprolol 50 MG TAB PO ×2 (07:33→20:24)
[2022-02-03] MEDS: Ferrous Sulfate 325 MG TAB PO (07:33)
[2022-02-03] MEDS: risperiDONE 1 MG TAB 4 MG PO ×3 (07:33→20:25)
[2022-02-03] MEDS: Celecoxib 200 MG CAP PO (07:33)
[2022-02-03] MEDS: Esomeprazole 40 MG CAPCR PO (07:33)
[2022-02-03 07:57] VITALS: BP 152/86; PULSE 62; RESP 19; TEMP 36.8; O2SAT 93
[2022-02-03 20:21] VITALS: BP 157/74; PULSE 60; RESP 18; TEMP 36.4; O2SAT 95
[2022-02-03] MEDS: Citalopram 20 MG TAB PO (20:25)
[2022-02-03] MEDS: rOPINIRole 0.5 MG TAB 1 MG PO (20:25)
[2022-02-03] MEDS: traZODone 100 MG TAB 150 MG PO (20:26)
[2022-02-04 07:31] VITALS: BP 133/86; PULSE 68; RESP 18; TEMP 37; O2SAT 95
[2022-02-04] MEDS: risperiDONE 1 MG TAB 4 MG PO ×3 (08:10→19:58)
[2022-02-04] MEDS: Celecoxib 200 MG CAP PO (08:10)
[2022-02-04] MEDS: Esomeprazole 40 MG CAPCR PO (08:10)
[2022-02-04] MEDS: Metoprolol 50 MG TAB PO ×2 (08:10→19:58)
[2022-02-04] MEDS: Ferrous Sulfate 325 MG TAB PO (08:10)
[2022-02-04 19:52] VITALS: BP 133/79; PULSE 59; RESP 19; TEMP 36.2; O2SAT 97
[2022-02-04] MEDS: traZODone 100 MG TAB 150 MG PO (19:59)
[2022-02-04] MEDS: rOPINIRole 0.5 MG TAB 1 MG PO (19:59)
[2022-02-04] MEDS: Citalopram 20 MG TAB PO (19:59)
[2022-02-05 07:48] VITALS: BP 152/78; PULSE 60; RESP 18; TEMP 36.8; O2SAT 96
[2022-02-05] MEDS: Celecoxib 200 MG CAP PO (08:30)
[2022-02-05] MEDS: Metoprolol 50 MG TAB PO ×2 (08:30→20:02)
[2022-02-05] MEDS: risperiDONE 1 MG TAB 4 MG PO ×3 (08:30→20:02)
[2022-02-05] MEDS: Esomeprazole 40 MG CAPCR PO (08:30)
[2022-02-05] MEDS: Ferrous Sulfate 325 MG TAB PO (08:30)
[2022-02-05 19:57] VITALS: BP 144/72; PULSE 61; RESP 19; TEMP 36.7; O2SAT 95
[2022-02-05] MEDS: traZODone 100 MG TAB 150 MG PO (20:02)
[2022-02-05] MEDS: Citalopram 20 MG TAB PO (20:02)
[2022-02-05] MEDS: rOPINIRole 0.5 MG TAB 1 MG PO (20:02)
[2022-02-06 07:56] VITALS: BP 138/86; PULSE 56; RESP 18; TEMP 36.3; O2SAT 96
[2022-02-06] MEDS: Esomeprazole 40 MG CAPCR PO (08:05)
[2022-02-06] MEDS: Celecoxib 200 MG CAP PO (08:05)
[2022-02-06] MEDS: risperiDONE 1 MG TAB 4 MG PO ×3 (08:05→19:47)
[2022-02-06] MEDS: Metoprolol 50 MG TAB PO ×2 (08:05→19:47)
[2022-02-06] MEDS: Ferrous Sulfate 325 MG TAB PO (08:05)
--- NOTE | 2022-02-06 10:18 | NUR.NOTE ---
Kaye from [facility] brought seo to nursing station at patient's request. Pt stated that they won't let me come home so I don't need the seo anymore. Notified Georgina Grider, intensive care ambulance paramedic. She requested that seo be placed in patient safe on unit and reports that she will contact [facility] to ascertain what they would like us ot do with the seo. Seo was placed in safe- receipt on patient chart. Nursing Note:
[2022-02-06 21:08] VITALS: O2SAT 96
[2022-02-06] MEDS: Citalopram 20 MG TAB PO (21:34)
[2022-02-06] MEDS: rOPINIRole 0.5 MG TAB 1 MG PO (21:34)
[2022-02-06] MEDS: traZODone 100 MG TAB 150 MG PO (21:34)
[2022-02-06] MEDS: Acetaminophen 325 MG TAB 650 MG PO (22:23)
[2022-02-06 23:45] VITALS: BP 140/80; PULSE 68; RESP 16; TEMP 36.6; O2SAT 97
[2022-02-07 07:37] VITALS: BP 147/71; PULSE 63; RESP 16; TEMP 36.3; O2SAT 95
[2022-02-07] MEDS: Ferrous Sulfate 325 MG TAB PO (07:44)
[2022-02-07] MEDS: risperiDONE 1 MG TAB 4 MG PO ×3 (07:44→20:11)
[2022-02-07] MEDS: Celecoxib 200 MG CAP PO (07:44)
[2022-02-07] MEDS: Metoprolol 50 MG TAB PO ×2 (07:44→20:12)
[2022-02-07] MEDS: Esomeprazole 40 MG CAPCR PO (07:45)
[2022-02-07] MEDS: rOPINIRole 0.5 MG TAB 1 MG PO (20:11)
[2022-02-07] MEDS: Acetaminophen 325 MG TAB 650 MG PO (20:11)
[2022-02-07] MEDS: traZODone 100 MG TAB 150 MG PO (20:12)
[2022-02-07] MEDS: Citalopram 20 MG TAB PO (20:12)
[2022-02-08] MEDS: risperiDONE 1 MG TAB 4 MG PO ×3 (07:36→20:57)
[2022-02-08] MEDS: Esomeprazole 40 MG CAPCR PO (07:37)
[2022-02-08] MEDS: Celecoxib 200 MG CAP PO (07:37)
[2022-02-08] MEDS: Metoprolol 50 MG TAB PO ×2 (07:37→20:57)
[2022-02-08] MEDS: Ferrous Sulfate 325 MG TAB PO (07:37)
[2022-02-08 07:48] VITALS: BP 160/77; PULSE 62; RESP 18; TEMP 36.8; O2SAT 97
[2022-02-08] MEDS: rOPINIRole 0.5 MG TAB 1 MG PO (20:57)
[2022-02-08] MEDS: Citalopram 20 MG TAB PO (20:57)
[2022-02-08] MEDS: traZODone 100 MG TAB 150 MG PO (20:57)
[2022-02-09 07:23] VITALS: BP 174/71; PULSE 57; RESP 18; TEMP 36.2; O2SAT 97
[2022-02-09] MEDS: risperiDONE 1 MG TAB 4 MG PO ×3 (07:51→19:17)
[2022-02-09] MEDS: Ferrous Sulfate 325 MG TAB PO (07:52)
[2022-02-09] MEDS: Celecoxib 200 MG CAP PO (07:53)
[2022-02-09] MEDS: Metoprolol 50 MG TAB PO ×2 (07:53→19:18)
[2022-02-09] MEDS: Esomeprazole 40 MG CAPCR PO (07:53)
--- NOTE | 2022-02-09 14:30 | CMACTNOTE_ITS ---
- If Service Date Differs Date of service: 02/09/22 Time of Service: 14:32 Care Management Activity Note Zan is settling in well at [facility]. He enjoys walking the halls and chatting with staff. He recently received his own clothes from [employer], which he is very happy about. He was wearing a shirt with a lobster on it when CM met with him, and he explained his past experience eating lobster. He stated that he ordered it out of the shell, so he didn't have to do the hard work, and that he loved it, but it was very expensive. Today, CM provided a few copies of the [facility] Journal to Zan, as his RN requested reading material to keep him occupied. GUILLERMO sent a new referral to [facility], a TBI rehab center in [place], [place], who is considering him for short term placement. GUILLERMO met with his care team today, and discussed a plan for him to go to short term rehab specifically for TBI patients with changes, and he would be placed half-way from that facility. GUILLERMO has already sent referrals to three [facility] facilities, and continues to communicate with them about the possibility of placement. Zan's guardian, Jose Francisco, gave permission (verbal in the care team meeting, as well as in an email) for Zan to go outside, either walking around the grounds with staff or going on outings with staff from [facility] [place]. Jose Francisco is agreeable to Zan being placed out of state in order to get Zan to an appropriate facility. GUILLERMO will continue to support discharge planning considerations.
[2022-02-09 14:44] VITALS: BP 165/80; PULSE 64; RESP 16; O2SAT 96
[2022-02-09] MEDS: traZODone 100 MG TAB 150 MG PO (21:19)
[2022-02-09] MEDS: Citalopram 20 MG TAB PO (21:19)
[2022-02-09] MEDS: rOPINIRole 0.5 MG TAB 1 MG PO (21:19)
[2022-02-10 08:05] VITALS: BP 168/81; PULSE 63; RESP 16; TEMP 36.3; O2SAT 95
[2022-02-10] MEDS: risperiDONE 1 MG TAB 4 MG PO ×3 (08:07→21:11)
[2022-02-10] MEDS: Esomeprazole 40 MG CAPCR PO (08:07)
[2022-02-10] MEDS: Celecoxib 200 MG CAP PO (08:07)
[2022-02-10] MEDS: Ferrous Sulfate 325 MG TAB PO (08:07)
[2022-02-10] MEDS: Metoprolol 50 MG TAB PO ×2 (08:07→21:12)
[2022-02-10 19:39] VITALS: BP 148/69; PULSE 59; RESP 12; TEMP 36.5; O2SAT 94
[2022-02-10 21:10] VITALS: BP 157/69; PULSE 65
[2022-02-10] MEDS: traZODone 100 MG TAB 150 MG PO (21:11)
[2022-02-10] MEDS: rOPINIRole 0.5 MG TAB 1 MG PO (21:11)
[2022-02-10] MEDS: Citalopram 20 MG TAB PO (21:12)
[2022-02-11 07:20] VITALS: BP 149/84; PULSE 57; RESP 20; TEMP 37; O2SAT 93
[2022-02-11 08:14] VITALS: BP 145/75; PULSE 60; RESP 16; TEMP 37; O2SAT 94
[2022-02-11] MEDS: Ferrous Sulfate 325 MG TAB PO (08:15)
[2022-02-11] MEDS: risperiDONE 1 MG TAB 4 MG PO ×3 (08:15→21:14)
[2022-02-11] MEDS: Metoprolol 50 MG TAB PO ×2 (08:15→21:14)
[2022-02-11] MEDS: Celecoxib 200 MG CAP PO (08:15)
[2022-02-11] MEDS: Esomeprazole 40 MG CAPCR PO (08:15)
[2022-02-11] MEDS: rOPINIRole 0.5 MG TAB 1 MG PO (21:14)
[2022-02-11] MEDS: Citalopram 20 MG TAB PO (21:14)
[2022-02-11] MEDS: traZODone 100 MG TAB 150 MG PO (21:14)
[2022-02-11 21:19] VITALS: BP 146/75; PULSE 64; RESP 16; TEMP 36.6; O2SAT 96
[2022-02-12] MEDS: Esomeprazole 40 MG CAPCR PO (07:33)
[2022-02-12 08:50] VITALS: BP 123/77; PULSE 59; RESP 18; TEMP 36; O2SAT 96
[2022-02-12] MEDS: risperiDONE 1 MG TAB 4 MG PO ×3 (09:58→19:00)
[2022-02-12] MEDS: Ferrous Sulfate 325 MG TAB PO (09:58)
[2022-02-12] MEDS: Metoprolol 50 MG TAB PO ×2 (09:58→19:01)
[2022-02-12] MEDS: Celecoxib 200 MG CAP PO (09:58)
[2022-02-12] MEDS: Acetaminophen 325 MG TAB 650 MG PO (19:00)
[2022-02-12] MEDS: rOPINIRole 0.5 MG TAB 1 MG PO (20:47)
[2022-02-12] MEDS: Citalopram 20 MG TAB PO (20:47)
[2022-02-12] MEDS: traZODone 100 MG TAB 150 MG PO (20:47)
[2022-02-13 07:34] VITALS: BP 171/75; PULSE 68; RESP 16; TEMP 36.7; O2SAT 95
[2022-02-13] MEDS: Esomeprazole 40 MG CAPCR PO (09:08)
[2022-02-13] MEDS: Ferrous Sulfate 325 MG TAB PO (09:08)
[2022-02-13] MEDS: Metoprolol 50 MG TAB PO ×2 (09:08→21:03)
[2022-02-13] MEDS: Celecoxib 200 MG CAP PO (09:09)
[2022-02-13] MEDS: risperiDONE 1 MG TAB 4 MG PO ×3 (09:18→21:03)
[2022-02-13] MEDS: traZODone 100 MG TAB 150 MG PO (21:03)
[2022-02-13] MEDS: rOPINIRole 0.5 MG TAB 1 MG PO (21:03)
[2022-02-13] MEDS: Citalopram 20 MG TAB PO (21:04)
[2022-02-13] MEDS: Acetaminophen 325 MG TAB 650 MG PO (22:15)
[2022-02-14 07:55] VITALS: BP 156/70; PULSE 59; RESP 20; TEMP 37; O2SAT 95
[2022-02-14] MEDS: Ferrous Sulfate 325 MG TAB PO (09:08)
[2022-02-14] MEDS: Metoprolol 50 MG TAB PO ×2 (09:08→21:06)
[2022-02-14] MEDS: risperiDONE 1 MG TAB 4 MG PO ×3 (09:09→21:06)
[2022-02-14] MEDS: Celecoxib 200 MG CAP PO (09:09)
[2022-02-14] MEDS: Esomeprazole 40 MG CAPCR PO (09:09)
[2022-02-14] MEDS: traZODone 100 MG TAB 150 MG PO (21:05)
[2022-02-14] MEDS: rOPINIRole 0.5 MG TAB 1 MG PO (21:05)
[2022-02-14] MEDS: Citalopram 20 MG TAB PO (21:06)
[2022-02-15 07:36] VITALS: BP 143/73; PULSE 55; RESP 18; TEMP 36.7; O2SAT 95
[2022-02-15] MEDS: Metoprolol 50 MG TAB PO ×2 (08:38→21:10)
[2022-02-15] MEDS: risperiDONE 1 MG TAB 4 MG PO ×3 (08:38→21:09)
[2022-02-15] MEDS: Esomeprazole 40 MG CAPCR PO (08:38)
[2022-02-15] MEDS: Ferrous Sulfate 325 MG TAB PO (08:39)
[2022-02-15] MEDS: Celecoxib 200 MG CAP PO (08:39)
[2022-02-15] MEDS: rOPINIRole 0.5 MG TAB 1 MG PO (21:09)
[2022-02-15] MEDS: traZODone 100 MG TAB 150 MG PO (21:10)
[2022-02-15] MEDS: Citalopram 20 MG TAB PO (21:10)
[2022-02-16] MEDS: risperiDONE 1 MG TAB 4 MG PO ×3 (07:35→20:53)
[2022-02-16] MEDS: Metoprolol 50 MG TAB PO ×2 (07:35→20:53)
[2022-02-16] MEDS: Celecoxib 200 MG CAP PO (07:35)
[2022-02-16] MEDS: Ferrous Sulfate 325 MG TAB PO (07:35)
[2022-02-16] MEDS: Esomeprazole 40 MG CAPCR PO (07:35)
[2022-02-16 07:40] VITALS: BP 150/74; PULSE 69; RESP 18; TEMP 36.5; O2SAT 94
--- NOTE | 2022-02-16 12:12 | CMACTNOTE_ITS ---
- If Service Date Differs Date of service: 02/16/22 Time of Service: 12:12 Care Management Activity Note Zan continues to be monitored at [facility] 2 level of care. He enjoys walking around the halls and talking with staff, and is very appreciative for all that we are doing to keep him safe and comfortable at [facility]. CM has provided him a note book for him to write notes to people, and to write down his thoughts. GUILLERMO has been meeting with his complex care team weekly, providing updates on his status. He remains stable with no behaviors. GUILLERMO has sent referrals to out of state facilities, and has been discussing his referral with those facilities, providing updates and sending documentation as requested. No bed offers currently. CM will continue to support discharge planning considerations.
[2022-02-16] MEDS: rOPINIRole 0.5 MG TAB 1 MG PO (20:53)
[2022-02-16] MEDS: traZODone 100 MG TAB 150 MG PO (20:53)
[2022-02-16] MEDS: Citalopram 20 MG TAB PO (20:53)
[2022-02-17] MEDS: Metoprolol 50 MG TAB PO ×2 (07:42→19:48)
[2022-02-17] MEDS: Esomeprazole 40 MG CAPCR PO (07:42)
[2022-02-17] MEDS: Celecoxib 200 MG CAP PO (07:42)
[2022-02-17] MEDS: Ferrous Sulfate 325 MG TAB PO (07:43)
[2022-02-17] MEDS: risperiDONE 1 MG TAB 4 MG PO ×3 (07:43→19:47)
[2022-02-17 08:22] VITALS: BP 144/77; PULSE 75; RESP 18; TEMP 36.7; O2SAT 96
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
[2022-02-17] MEDS: Acetaminophen 325 MG TAB 650 MG PO ×2 (16:30→20:56)
[2022-02-17] MEDS: traZODone 100 MG TAB 150 MG PO (19:47)
[2022-02-17] MEDS: rOPINIRole 0.5 MG TAB 1 MG PO (19:47)
[2022-02-17] MEDS: Citalopram 20 MG TAB PO (19:48)
[2022-02-18 05:40] VITALS: BP 122/72; PULSE 59; RESP 18; TEMP 36.6; O2SAT 96
[2022-02-18] MEDS: Celecoxib 200 MG CAP PO (08:08)
[2022-02-18] MEDS: Esomeprazole 40 MG CAPCR PO (08:08)
[2022-02-18] MEDS: Metoprolol 50 MG TAB PO ×2 (08:08→19:11)
[2022-02-18] MEDS: Ferrous Sulfate 325 MG TAB PO (08:08)
[2022-02-18] MEDS: risperiDONE 1 MG TAB 4 MG PO ×3 (08:09→19:10)
[2022-02-18 11:39] VITALS: BP 169/76; PULSE 62; RESP 20; TEMP 36.6; O2SAT 96
--- NOTE | 2022-02-18 11:45 | RT.EKG_ITS ---
APPROVED REPORT Exam: Resting ECG Reason for Exam: Chest Pain Patient Location: I HR:54 bpm ECG Measurements Heart Rate 54 AXIS NV 177 P 38 QRSd 101 QRS -18 QT 453 T 47 QTc 430 Conclusion Sinus rhythm...normal P axis, V-rate 50- 99 Borderline left axis deviation...QRS axis (-15,-29)
[2022-02-18] MEDS: Mylanta Suspension 30 ML CUP PO (11:59)
[2022-02-18] MEDS: Acetaminophen 325 MG TAB 650 MG PO ×2 (12:15→18:42)
[2022-02-18 13:07] VITALS: BP 167/77; PULSE 54; RESP 20; TEMP 36.4; O2SAT 97
[2022-02-18 15:20] VITALS: BP 165/76; PULSE 56; RESP 18; TEMP 37.3; O2SAT 93
[2022-02-18] MEDS: rOPINIRole 0.5 MG TAB 1 MG PO (21:03)
[2022-02-18] MEDS: traZODone 100 MG TAB 150 MG PO (21:03)
[2022-02-18] MEDS: Citalopram 20 MG TAB PO (21:04)
[2022-02-19 07:20] VITALS: BP 188/81; PULSE 60; RESP 20; TEMP 36.5; O2SAT 96
[2022-02-19] MEDS: Esomeprazole 40 MG CAPCR PO (07:30)
[2022-02-19] MEDS: Celecoxib 200 MG CAP PO (08:25)
[2022-02-19] MEDS: Ferrous Sulfate 325 MG TAB PO (08:26)
[2022-02-19] MEDS: risperiDONE 1 MG TAB 4 MG PO ×3 (08:26→19:07)
[2022-02-19] MEDS: Metoprolol 50 MG TAB PO ×2 (08:26→19:07)
[2022-02-19 15:11] VITALS: BP 128/80; PULSE 64; RESP 19; TEMP 37.1; O2SAT 95
--- NOTE | 2022-02-19 17:01 | W.PM.PROGNOT ---
Date of Service Date of service: 02/19/22 Time of Service: 17:01 Assessment and Plan Assessment and plan (1) Psoriasis: Status: Chronic Assessment and plan: Bilat elbows - restart fluocinonide cream topically BID. Subjective Subjective Interval history since last seen: C/O psoriosis on both elbows - requests fluocinomide cream be restarted - it has been restarted. Exam Extrem Other: Bilateral elbow psoriosis flare, crusty red areas on both elbows. Objective Last Vital Signs Temp 36.5 C 02/19/22 07:20 Pulse 60 02/19/22 07:20 Resp 20 02/19/22 07:20 BP 188/81 H 02/19/22 07:20 Pulse Ox 96 02/19/22 07:20
[2022-02-19] MEDS: Acetaminophen 325 MG TAB 650 MG PO (18:10)
[2022-02-19] MEDS: Citalopram 20 MG TAB PO (21:05)
[2022-02-19] MEDS: rOPINIRole 0.5 MG TAB 1 MG PO (21:05)
[2022-02-19] MEDS: traZODone 100 MG TAB 150 MG PO (21:06)
[2022-02-20 07:38] VITALS: BP 150/81; PULSE 60; RESP 18; TEMP 36.2; O2SAT 96
[2022-02-20] MEDS: risperiDONE 1 MG TAB 4 MG PO ×3 (08:31→21:00)
[2022-02-20] MEDS: Metoprolol 50 MG TAB PO ×2 (08:31→21:01)
[2022-02-20] MEDS: Esomeprazole 40 MG CAPCR PO (08:31)
[2022-02-20] MEDS: Ferrous Sulfate 325 MG TAB PO (08:31)
[2022-02-20] MEDS: Celecoxib 200 MG CAP PO (08:31)
[2022-02-20] MEDS: Acetaminophen 325 MG TAB 650 MG PO ×2 (14:24→21:00)
[2022-02-20] MEDS: traZODone 100 MG TAB 150 MG PO (20:59)
[2022-02-20] MEDS: rOPINIRole 0.5 MG TAB 1 MG PO (21:00)
[2022-02-20] MEDS: Citalopram 20 MG TAB PO (21:01)
[2022-02-20 21:07] VITALS: BP 159/81; PULSE 67; RESP 15; TEMP 36.2; O2SAT 96
[2022-02-21] MEDS: Acetaminophen 325 MG TAB 650 MG PO (03:02)
[2022-02-21] MEDS: Metoprolol 50 MG TAB PO ×2 (09:46→20:22)
[2022-02-21] MEDS: risperiDONE 1 MG TAB 4 MG PO ×3 (09:46→20:22)
[2022-02-21] MEDS: Esomeprazole 40 MG CAPCR PO (09:46)
[2022-02-21] MEDS: Celecoxib 200 MG CAP PO (09:46)
[2022-02-21] MEDS: Ferrous Sulfate 325 MG TAB PO (09:46)
--- NOTE | 2022-02-21 11:02 | CMPROGNOTE_ITS ---
- If Service Date Differs Date of service: 02/21/22 Time of Service: 11:02 Care Management Progress Note S/O: Zan was sitting up in his chair when CM met with him today. He asked about the [facility] facility in [place], and stated that he has never lived in [place], but is excited to try something new. CM discussed the process with Zan, as it may take a while for the paperwork to be completed prior to his discharge. He asked about belongings, including his TV and record player. CM will discuss this with [facility] [employer] staff as well as [facility] staff to determine the appropriate list of belongings for him to bring. CM filled out a level one PASRR, and contacted level two clinicians, Sally Galeano and Nell Begum to discuss the need for a level two PASRR. Sally, who facilitates the level two PASRR for mental health, stated that he does not qualify for a level two PASRR for mental health, as he does not have a history of mental illness. Nell, who facilitates the level two PASRR for developmental disabilities, stated that because his TBI (a related condition) occurred after the age of 23, he also does not qualify for a level two PASRR for developmental disabilities. CM will send the level one PASRR to [facility] at [facility]. A: Zan is a 66 year old male admitted to [facility] on 01/13/22 for behavioral disturbances related to TBI. P: Zan has been accepted at [facility] in [place], [place]. CM will send a level one PASRR to the facility prior to his discharge. Transportation to be determined by date of disposition. Zan will follow up with facility providers, and his discharge plan of care. CM will continue to support discharge planning considerations.
[2022-02-21] MEDS: Citalopram 20 MG TAB PO (20:21)
[2022-02-21] MEDS: traZODone 100 MG TAB 150 MG PO (20:23)
[2022-02-21] MEDS: rOPINIRole 0.5 MG TAB 1 MG PO (20:23)
[2022-02-21 22:23] VITALS: BP 136/77; PULSE 79; RESP 18; TEMP 36.8; O2SAT 98
[2022-02-22 07:33] VITALS: BP 166/78; PULSE 62; RESP 18; TEMP 36; O2SAT 98
[2022-02-22] MEDS: Celecoxib 200 MG CAP PO (07:35)
[2022-02-22] MEDS: Ferrous Sulfate 325 MG TAB PO (07:35)
[2022-02-22] MEDS: Metoprolol 50 MG TAB PO ×2 (07:35→21:17)
[2022-02-22] MEDS: Esomeprazole 40 MG CAPCR PO (07:35)
[2022-02-22] MEDS: risperiDONE 1 MG TAB 4 MG PO ×3 (07:35→21:17)
[2022-02-22] MEDS: Acetaminophen 325 MG TAB 650 MG PO (16:40)
[2022-02-22] MEDS: traZODone 100 MG TAB 150 MG PO (21:17)
[2022-02-22] MEDS: Citalopram 20 MG TAB PO (21:17)
[2022-02-22] MEDS: rOPINIRole 0.5 MG TAB 1 MG PO (21:17)
[2022-02-23] MEDS: Acetaminophen 325 MG TAB 650 MG PO ×2 (07:28→18:59)
[2022-02-23] MEDS: Senna TAB 1 TAB PO (07:29)
[2022-02-23] MEDS: Esomeprazole 40 MG CAPCR PO (07:29)
[2022-02-23] MEDS: risperiDONE 1 MG TAB 4 MG PO ×3 (07:35→18:59)
[2022-02-23] MEDS: Ferrous Sulfate 325 MG TAB PO (07:35)
[2022-02-23] MEDS: Celecoxib 200 MG CAP PO (07:36)
[2022-02-23] MEDS: Metoprolol 50 MG TAB PO ×2 (07:36→18:59)
[2022-02-23 07:38] VITALS: BP 131/78; PULSE 63; RESP 18; TEMP 36.8; O2SAT 96
--- NOTE | 2022-02-23 14:39 | NUR.NOTE ---
Nursing Note: PPD placed on left FA, circled with skin marker.
[2022-02-23] MEDS: traZODone 100 MG TAB 150 MG PO (21:10)
[2022-02-23] MEDS: rOPINIRole 0.5 MG TAB 1 MG PO (21:10)
[2022-02-23] MEDS: Citalopram 20 MG TAB PO (21:10)
[2022-02-24 07:32] VITALS: BP 135/75; PULSE 74; RESP 18; TEMP 36.7; O2SAT 97
[2022-02-24] MEDS: Celecoxib 200 MG CAP PO (08:18)
[2022-02-24] MEDS: Metoprolol 50 MG TAB PO ×2 (08:18→19:16)
[2022-02-24] MEDS: Ferrous Sulfate 325 MG TAB PO (08:18)
[2022-02-24] MEDS: Esomeprazole 40 MG CAPCR PO (08:18)
[2022-02-24] MEDS: risperiDONE 1 MG TAB 4 MG PO ×3 (08:18→19:16)
[2022-02-24] MEDS: Citalopram 20 MG TAB PO (21:05)
[2022-02-24] MEDS: traZODone 100 MG TAB 150 MG PO (21:05)
[2022-02-24] MEDS: rOPINIRole 0.5 MG TAB 1 MG PO (21:05)
[2022-02-24] MEDS: Acetaminophen 325 MG TAB 650 MG PO (21:38)
[2022-02-25 08:09] VITALS: BP 160/93; PULSE 65; RESP 18; TEMP 36.5; O2SAT 97
[2022-02-25] MEDS: risperiDONE 1 MG TAB 4 MG PO ×3 (08:58→20:15)
[2022-02-25] MEDS: Ferrous Sulfate 325 MG TAB PO (08:58)
[2022-02-25] MEDS: Esomeprazole 40 MG CAPCR PO (08:58)
[2022-02-25] MEDS: Metoprolol 50 MG TAB PO ×2 (08:58→20:15)
[2022-02-25] MEDS: Celecoxib 200 MG CAP PO (08:58)
[2022-02-25] MEDS: Acetaminophen 325 MG TAB 650 MG PO (18:42)
[2022-02-25] MEDS: rOPINIRole 0.5 MG TAB 1 MG PO (20:15)
[2022-02-25] MEDS: Citalopram 20 MG TAB PO (20:15)
[2022-02-25] MEDS: traZODone 100 MG TAB 150 MG PO (20:15)
[2022-02-26] MEDS: risperiDONE 1 MG TAB 4 MG PO ×3 (07:50→19:49)
[2022-02-26] MEDS: Metoprolol 50 MG TAB PO ×2 (07:50→19:50)
[2022-02-26] MEDS: Ferrous Sulfate 325 MG TAB PO (07:50)
[2022-02-26] MEDS: Celecoxib 200 MG CAP PO (07:50)
[2022-02-26] MEDS: Esomeprazole 40 MG CAPCR PO (07:50)
[2022-02-26 07:55] VITALS: BP 125/85; PULSE 68; RESP 18; TEMP 37.2; O2SAT 95
[2022-02-26] MEDS: Acetaminophen 325 MG TAB 650 MG PO (19:49)
[2022-02-26] MEDS: traZODone 100 MG TAB 150 MG PO (21:12)
[2022-02-26] MEDS: rOPINIRole 0.5 MG TAB 1 MG PO (21:13)
[2022-02-26] MEDS: Citalopram 20 MG TAB PO (21:13)
[2022-02-27 06:50] LABS: Source Nasal/Nares
[2022-02-27 07:21] LABS: COVID-19 PCR Negative (Negative)
[2022-02-27 07:38] VITALS: BP 135/82; PULSE 61; RESP 18; TEMP 36.5; O2SAT 95
[2022-02-27 09:00] VITALS: BP 148/78; PULSE 75; RESP 16; TEMP 36.5; O2SAT 95
[2022-02-27] MEDS: Esomeprazole 40 MG CAPCR PO (09:05)
[2022-02-27] MEDS: Metoprolol 50 MG TAB PO ×2 (09:05→19:28)
[2022-02-27] MEDS: Celecoxib 200 MG CAP PO (09:05)
[2022-02-27] MEDS: risperiDONE 1 MG TAB 4 MG PO ×3 (09:05→19:28)
[2022-02-27] MEDS: Ferrous Sulfate 325 MG TAB PO (09:05)
[2022-02-27] MEDS: Acetaminophen 325 MG TAB 650 MG PO (17:13)
[2022-02-27] MEDS: traZODone 100 MG TAB 150 MG PO (19:28)
[2022-02-27] MEDS: rOPINIRole 0.5 MG TAB 1 MG PO (19:28)
[2022-02-27] MEDS: Citalopram 20 MG TAB PO (19:29)
[2022-02-28 05:15] LABS: Source Nasal/Nares
[2022-02-28 05:45] LABS: COVID-19 PCR Negative (Negative)
[2022-02-28 07:50] VITALS: BP 158/73; PULSE 62; RESP 18; TEMP 36.1; O2SAT 97
[2022-02-28] MEDS: Ferrous Sulfate 325 MG TAB PO (08:19)
[2022-02-28] MEDS: Celecoxib 200 MG CAP PO (08:19)
[2022-02-28] MEDS: Esomeprazole 40 MG CAPCR PO (08:19)
[2022-02-28] MEDS: Metoprolol 50 MG TAB PO (08:19)
[2022-02-28] MEDS: risperiDONE 1 MG TAB 4 MG PO (08:19)
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
--- NOTE | 2022-02-28 13:04 | CMDISCH_ITS ---
- If Service Date Differs Date of service: 02/28/22 Time of Service: 13:04 LACE Index Scoring Tool - Questions: Length of Stay (in days): 14 or more Acuity (Admit via E.D.?): Yes E.D. Visits: 2 - Answers: Total Score: 12 Risk of Readmission: High Risk Care Management Discharge Reason for Hospitalization: TBI Discharge Plan: Zan transferred to [facility] in [place], [place] today, a neuro rehabilitation facility. GUILLERMO coordinated his transport via [facility], with a PA from [facility] for the extended trip. He will continue to be supported by [facility] and the TBI waiver program through [facility], who will assist with his discharge back to [place] from [facility], once he is ready for discharge. CM notified his guardian, Lux Pace, who provided a verbal confirmation for discharge paperwork. Zan was excited to go on this next step in his treatment. Patient/Family Education Needs: Review discharge instructions and limitations, discussion of self care needs including ask me three and goals of care. Services Needed at Discharge: Residential Facility ([facility]), Transportation ([facility])
== END 2022-02-28 10:03 | disposition other institution (70) | DRG 884 ==
LOC: ER 01-13 20:42 → MS 01-13 21:41
PROVIDERS: Internal Medicine; Nurse Practitioner Family; Physician Assistant; Admitting Provider Family Medicine; Emergency Provider Student in an Organized Health Care Education/Training Program; PCP Internal Medicine; Visit Provider Family Medicine
DX: R41.89 Other symptoms and signs involving cognitive functions and awareness (principal); G93.1 Anoxic brain damage, not elsewhere classified; R45.1 Restlessness and agitation; I10 Essential (primary) hypertension; G47.33 Obstructive sleep apnea (adult) (pediatric); D64.9 Anemia, unspecified; Z86.69 Personal history of other diseases of the nervous system and sense organs; L40.9 Psoriasis, unspecified; S06.89AS Other specified intracranial injury with loss of consciousness status unknown, sequela; T65.91XS Toxic effect of unspecified substance, accidental (unintentional), sequela; K75.81 Nonalcoholic steatohepatitis (NASH); H90.3 Sensorineural hearing loss, bilateral
CPT/HCPCS: 36415; 80048; 80053; 80307; 87635; 99285; 99306; 99309; 99316; 70450; 70551; 80320; 81003; 82607; 84443; 85025; 93005; 93010; 99308